=== PATIENT | male | born 1945 | race Caucasian/White ===

== ENCOUNTER 2020-09-01 11:09 | Inpatient (IN) | payer MEDICARE ==
[~2020-09-01] VITALS: Ht 162.6 cm; Wt 77.1 kg
--- NOTE | 2020-09-01 07:10 | NUR ---
SBAR REPORT GIVEN VERBALLY FROM DAYSHIFT RN, PT REMAINS ON DROPLET PRECAUTIONS, PATIENT AWAKE ALERT, ORIENTED x 2, SLIGHT CONFUSION NOTED, LETHARGY NOTED, OXYGEN IN PLACE VIA NASAL CANNULA REMAIN ON TELEMETRY WITH CONT PULSE OXIMETRY FOR SAFETY, PATIENT ORIENTED TO ONCOMING STAFF, BOARD UPDATED, PLAN OF CARE DISCUSSED, CALL LIGHT WITHIN REACH, PATIENT EDUCATED TO CALL PRIOR TO GETTING OOB FOR SAFETY
[2020-09-01] MEDS ORDERED: PIPER-TAZ 3.375 GM 50 ML IV ONE (11:45)
[2020-09-01] MEDS ORDERED: VANCOMYCIN 1GM/NS 250 ML 250 ML IV ONE (11:45)
--- NOTE | 2020-09-01 12:07 | Diagnostic Imaging Report ---
EXAMINATION: CHEST SINGLE (PORTABLE) INDICATION: COPD, shortness of breath COMPARISON: None FINDINGS: LINES/TUBES:None LUNGS:The lungs are well-inflated. Bilateral lower lung predominant interstitial opacities. PLEURA:No pleural effusion or pneumothorax. MEDIASTINUM:The cardiomediastinal silhouette appears normal in size and shape. Atherosclerotic calcifications of the thoracic aorta. BONES/SOFT TISSUES:No acute osseous injury. ABDOMEN:No free air under the diaphragm. IMPRESSION: Bilateral lower lung predominant interstitial opacities, more likely pulmonary interstitial edema than superimposed atypical infection. Signed by: Jennifer Maher MD on 09/01/2020 12:04 PM
[2020-09-01 12:15] LABS: BASOPHILS % 0.4 % (0.0-1.0); EOSINOPHILS # (AUTO) 0.2 (0.0-0.4); EOSINOPHILS % 2.9 % (0.0-6.0); HEMATOCRIT 54.1 % (38.2-49.6); HEMOGLOBIN 13.8 g/dL (14.0-18.0); LYMPHOCYTES # (AUTO) 0.9 (1.0-3.2); LYMPHOCYTES % 12.2 % (18.0-39.1); MEAN CORPUSCULAR HGB CONC 25.5 g/dL (31-35); MEAN CORPUSCULAR VOLUME 74.6 fL (81-99); MONOCYTES # (AUTO) 0.5 (0.2-0.8); MONOCYTES % 7.2 % (4.4-11.3); NEUTROPHILS # (AUTO) 5.4 (2.1-6.9); NEUTROPHILS % 76.7 % (38.7-80.0); PLATELET COUNT 198 x10e3/uL (140-360); RED CELL DISTRIBUTION WIDTH 23.2 % (11.7-14.4)
[2020-09-01 12:19] LABS: INR 0.97; PROTHROMBIN TIME 13.4 seconds (11.9-14.5); RED BLOOD COUNT 7.25 x10e6/uL (4.3-5.7)
[2020-09-01 12:20] LABS: PARTIAL THROMBOPLASTIN TIME 30.9 seconds (23.8-35.5)
[2020-09-01 12:30] LABS: ALANINE AMINOTRANSFERASE 8 IU/L (0-55); ALBUMIN/GLOBULIN RATIO 1.2 (0.8-2.0); ALKALINE PHOSPHATASE 86 IU/L (40-150); ANION GAP 14.2 mmol/L (8-16); BLOOD UREA NITROGEN 16 mg/dL (7-26); BUN/CREATININE RATIO 15 (6-25); CALCIUM 9.4 mg/dL (8.4-10.2); CARBON DIOXIDE 36 mmol/L (22-29); CHLORIDE 96 mmol/L (98-107); CREATINE KINASE 47 IU/L (30-200); CREATININE, SERUM 1.04 mg/dL (0.72-1.25); EST GLOMERULAR FILTRATION RATE > 60 ML/MIN (60-); GLUCOSE 112 mg/dL (74-118); MAGNESIUM 2.3 MG/DL (1.3-2.1); POTASSIUM 4.2 mmol/L (3.5-5.1); SODIUM 142 mmol/L (136-145)
--- NOTE | 2020-09-01 13:11 | Emergency Department Note ---
History of Present Illnes History of Present Illness Chief Complaint: General Medicine Complaints History of Present Illness This is a 74 year old male Patient in from home with complaints of bilateral lower extremity redness and swelling that started about 2 weeks ago. Patient has advanced COPD and is on oxygen at home. Oxygen saturation in triage on room air was 78%, 100% on 4L via nasal cannula. Patient is tachypneic in triage. Historian: Patient Arrival Mode: Car Screen Making Supervisor Required: No Onset (how long ago): week(s) (2) Location: BILAT LEGS Quality: SWELLING, REF, PAINFUL Radiation: Reports non-radiation Severity: moderate Onset quality: gradual Timing of current episode: constant Progression: worsening Chronicity: new Context: Denies recent illness Relieving factors: none Exacerbating factors: none Associated symptoms: Reports denies other symptoms, Reports shortness of breath Past Medical/Family History Physician Review I have reviewed the patient's past medical and family history. Any updates have been documented here. Past Medical History Recent Fever: No Clinical Suspicion of Infectio: No New/Unexplained Change in Ment: No Past Medical History: Hypertension, Diabetes, COPD, CHF, Hyperlipedemia, Osteoarthritis Past Surgical History: Hernia Repair Social History Smoking Cessation: Current every day smoker Counseling Performed: No Alcohol Use: None Any Illegal Drug Use: No TB Exposure/Symptoms: No Physically hurt or threatened: No Other Any Pre-Existing Lines (PICC,: No Review of Systems Review of Systems Constitutional: Reports no symptoms EENTM: Reports no symptoms Cardiovascular: Reports edema Respiratory: Reports as per HPI, Reports dyspnea Gastrointestinal: Reports no symptoms Genitourinary: Reports no symptoms Musculoskeletal: Reports as per HPI Integumentary: Reports no symptoms Neurological: Reports no symptoms Psychological: Reports no symptoms Endocrine: Reports no symptoms Hematological/Lymphatic: Reports no symptoms Physical Exam Related Data Allergies: Coded Allergies: No Known Allergies (Unverified , 09/01/20) Triage Vital Signs Vital Signs Date Time Temp Pulse Resp B/P (MAP) Pulse Ox O2 Delivery O2 Flow Rate FiO2 09/01/20 11:19 98.1 101 28 153/77 97 Room Air 09/01/20 11:43 4.0 Vital signs reviewed: Yes Physical Exam CONSTITUTIONAL Constitutional: Present well-developed, Present well-nourished HENT HENT: Present normocephalic, Present atraumatic, Present oropharynx clear/moist, Present nose normal HENT L/R: Present left ext ear normal, Present right ext ear normal EYES Eyes: Reports PERRL, Reports conjunctivae normal NECK Neck: Present ROM normal PULMONARY Pulmonary: Present effort normal, Present breath sounds normal CARDIOVASCULAR Cardiovascular: Present regular rhythm, Present heart sounds normal, Present capillary refill normal, Present normal rate GASTROINTESTINAL Abdominal: Present soft, Present nontender, Present bowel sounds normal GENITOURINARY Genitourinary: Present exam deferred SKIN Skin: Present warm, Present dry MUSCULOSKELETAL Musculoskeletal: Present ROM normal, Present edema (3+ BILAT LE's, ), Present tenderness, Present other (ERYTHEMA BELOW KNEES TO FEET) NEUROLOGICAL Neurological: Present alert, Present oriented x 3, Present no gross motor or sensory deficits PSYCHOLOGICAL Psychological: Present mood/affect normal, Present judgement normal Results Laboratory Result Diagram: 09/01/20 1136 09/01/20 1136 Laboratory Laboratory Tests Test 09/01/20 11:37 09/01/20 11:36 White Blood Count 6.97 x10e3/uL (4.8-10.8) Red Blood Count 7.25 x10e6/uL (4.3-5.7) Hemoglobin 13.8 g/dL (14.0-18.0) Hematocrit 54.1 % (38.2-49.6) Mean Corpuscular Volume 74.6 fL (81-99) Mean Corpuscular Hemoglobin 19.0 pg (28-32) Mean Corpuscular Hemoglobin Concent 25.5 g/dL (31-35) Red Cell Distribution Width 23.2 % (11.7-14.4) Platelet Count 198 x10e3/uL (140-360) Neutrophils (%) (Auto) 76.7 % (38.7-80.0) Lymphocytes (%) (Auto) 12.2 % (18.0-39.1) Monocytes (%) (Auto) 7.2 % (4.4-11.3) Eosinophils (%) (Auto) 2.9 % (0.0-6.0) Basophils (%) (Auto) 0.4 % (0.0-1.0) Neutrophils # (Auto) 5.4 (2.1-6.9) Lymphocytes # (Auto) 0.9 (1.0-3.2) Monocytes # (Auto) 0.5 (0.2-0.8) Eosinophils # (Auto) 0.2 (0.0-0.4) Basophils # (Auto) 0.0 (0.0-0.1) Absolute Immature Granulocyte (auto 0.04 x10e3/uL (0-0.1) Prothrombin Time 13.4 seconds (11.9-14.5) Prothromb Time International Ratio 0.97 Activated Partial Thromboplast Time 30.9 seconds (23.8-35.5) Sodium Level 142 mmol/L (136-145) Potassium Level 4.2 mmol/L (3.5-5.1) Chloride Level 96 mmol/L (98-107) Carbon Dioxide Level 36 mmol/L (22-29) Anion Gap 14.2 mmol/L (8-16) Blood Urea Nitrogen 16 mg/dL (7-26) Creatinine 1.04 mg/dL (0.72-1.25) Estimat Glomerular Filtration Rate > 60 ML/MIN (60-) BUN/Creatinine Ratio 15 (6-25) Glucose Level 112 mg/dL (74-118) Calcium Level 9.4 mg/dL (8.4-10.2) Magnesium Level 2.3 MG/DL (1.3-2.1) Total Bilirubin 0.6 mg/dL (0.2-1.2) Aspartate Amino Transf (AST/SGOT) 16 IU/L (5-34) Alanine Aminotransferase (ALT/SGPT) 8 IU/L (0-55) Alkaline Phosphatase 86 IU/L (40-150) Creatine Kinase 47 IU/L (30-200) Creatine Kinase MB 2.80 ng/mL (0-5.0) Troponin I 0.009 ng/mL (0-0.300) B-Type Natriuretic Peptide 133.4 pg/mL (0-100) Total Protein 7.3 g/dL (6.5-8.1) Albumin 4.0 g/dL (3.5-5.0) Globulin 3.3 g/dL (2.3-3.5) Albumin/Globulin Ratio 1.2 (0.8-2.0) Lab results reviewed: Yes Imaging Imaging results reviewed: Yes Procedures 12 Lead ECG Interpretation ECG Interpretation : ECG: ECG 1 Screen Making Supervisor: Interpreted by ED physician Date: Sep 01, 2020 Time: 12:02 Rhythm: sinus tachycardia Ectopy: PVC's Rate: tachycardia BPM: 104 QRS axis: left Conduction: left bundle branch block T wave inversion: I, aVL Clinical Impression: abnormal ECG Assessment & Plan Medical Decision Making MDM LE EDEMA, ERYTHEMA/TENDERNESS - CBC, CHEM, BLD CX'S, ECG, CARDIACS, BNP, CXR, DOPPLER - EVAL CELLULITIS, CHF, DVT, RENAL INSUFF, HYPOALBUMINEMIA Reassessment Reassessment ADMIT DR GUZMÁN ([facility]) Assessment & Plan Final Impression: (1) Cellulitis (2) CHF (congestive heart failure) Depart Disposition: ADMITTED Last Vital Signs Date Time Temp Pulse Resp B/P (MAP) Pulse Ox O2 Delivery O2 Flow Rate FiO2 09/01/20 12:30 109 20 115/61 99 Nasal Cannula 4.0 09/01/20 11:19 98.1 Medications in the ED Piperacillin Sod/ Tazobactam Sod 50 ml @ 50 mls/hr NOW ONCE IV Last administered on 09/01/20at 12:22; Admin Dose 50 MLS/HR; Start 09/01/20 at 11:45; Stop 09/01/20 at 12:44; Status DC Vancomycin HCl 250 ml @ 166.667 mls/hr NOW ONCE IV Last administered on 09/01/20at 12:53; Admin Dose 166.667 MLS/HR; Start 09/01/20 at 11:45; Stop 09/01/20 at 13:14 PEDRO LOZA MD Sep 01, 2020 13:10
[2020-09-01 13:34] LABS: BILIRUBIN,URINE NEGATIVE (NEGATIVE); CLARITY,URINE CLEAR (CLEAR); COLOR,URINE YELLOW (YELLOW); KETONES,URINE NEGATIVE (NEGATIVE); LEUKOCYTE ESTERASE ,URINE NEGATIVE (NEGATIVE); NITRITE,URINE NEGATIVE (NEGATIVE); PROTEIN,URINE DIPSTICK TRACE (NEGATIVE)
[2020-09-01 13:48] LABS: RBC,URINE 0-5 /HPF (0-5); WBC,URINE (MAN) 0-5 /HPF (0-5)
[2020-09-01] MEDS ORDERED: FUROSEMIDE INJ 10 MG/ML 4 ML VIAL IV ONE (17:15)
--- NOTE | 2020-09-01 17:30 | NUR ---
RECEIVED PATIENT ON UNIT BY WHEELCHAIR AT 1515. PT ACCOMPANIED BY TECH. PT IN NO DISTRESS. RESPIRATIONS EVEN AND BREATHING UNLABORED. TELE APPLIED. BELONGINGS WITH PATIENT. PATIENT HAS NO MEDICATIONS FROM HOME. CALL LIGHT WITHIN REACH.
[2020-09-01 17:51] VITALS: BP_SYST 107
[2020-09-01 18:17] VITALS: BP 107/74
--- NOTE | 2020-09-01 18:23 | NUR ---
CALLED PATIENT'S SPOUSE CANDIDO REGARDING HOME MEDS. PATIENT DOES NOT RECALL WHAT MEDICATIONS HE IS TAKING.
[2020-09-01 18:25] VITALS: BP 107/74
--- NOTE | 2020-09-01 18:35 | NUR ---
CALLED DR. CABRERA REGARDING CONSULT.
[2020-09-01] MEDS ORDERED: DOCUSATE SODIUM 100 MG CAP PO PRN (18:45)
[2020-09-01] MEDS ORDERED: ACETAMINOPHEN 325 MG TAB PO PRN (18:45)
[2020-09-01] MEDS ORDERED: ONDANSETRON HCL INJ 2MG/ML 2ML 2 MG/ML VIAL IV PRN (18:45)
--- NOTE | 2020-09-01 18:55 | NUR ---
SPOKE TO SPOUSE MILAD JOHN AND PATIENT'S MEDICATIONS REVIEWED. PATIENT IS RESTING IN BED WATCHING TV. PT IN STABLE CONDITION. RESPIRATIONS EVEN AND BREATHING UNLABORED. NO C/O PAIN VERBALIZED. TELE APPLIED. REPORT GIVEN TO ONCOMING NURSE.
[2020-09-01] MEDS ORDERED: HYDROCHLOROTHIA25 MG (19:05)
[2020-09-01] MEDS ORDERED: ALBUTEROL IH (19:05)
[2020-09-01] MEDS ORDERED: LISINOPRIL10 MG PO (19:05)
[2020-09-01] MEDS ORDERED: FLOMAX0.4 MG PO (19:05)
[2020-09-01] MEDS ORDERED: ASPIRIN81 MG PO (19:05)
[2020-09-01] MEDS ORDERED: LATANOPROST 0.7.5 ML OP (19:05)
[2020-09-01] MEDS ORDERED: CRESTOR10 MG PO (19:05)
[2020-09-01] MEDS ORDERED: METFORMIN HCL500 MG PO (19:05)
[2020-09-01 19:31] LABS: CREATINE KINASE MB 2.9 ng/mL (0-5.0)
[2020-09-01 19:46] VITALS: BP 122/75
[2020-09-01 19:49] VITALS: BP 122/75
[2020-09-01] MEDS: FUROSEMIDE INJ 10 MG/ML 4 ML VIAL IV SCH (20:34)
--- NOTE | 2020-09-01 21:30 | NUR ---
H&P cc: leg redness HPI: 74yoM, PCp , developed lower extremities redness/discomfort. Found to have cellulitis of legs. Pt also has severe COPD on Home O2, now withe mildly increased SOB. Pt continues to smoke. PMH: severe COPD on home O2, current smoker, CHF PShx; double hernia repair Allergies; see emr Fh/SH; ; 1ppd cigs meds; see MAR ROS: no f/c/s/N/V/D/OSORIO/cp/confusion/dizziness/vision changes/focal limb weakness v/s revd PE tired appearing anicteric ns1s2 REDUCED BS soft nt nd ERYTHEMA AND WARMTH OF B/L FORELEGS, WITH ASSOCIATED EDEMA 2+ skin dry flat affect a&ox3; knox labs/meds revd A/P: Cellulitis of B/L forelegs- IV vanco Severe COPD - O2 prn Nicotine dependence- use nicotine patch AECHF- check echo; use lasix IV B/L pulmonary edema- diurese Prop: lovenox Dispo: f/u COVID testing JARRED GUZMÁN MD, PHD.
--- NOTE | 2020-09-01 21:51 | NUR ---
TELEMETRY REPORTING PATIENT DESAT READING 77, PATIENT SEEN SITTING ON SIDE OF BED, WITH ONE FOOT ON FLOOR, TELEMETRY AND OXYGEN OFF, PT STATES "i HAD TO PEE" REEDUCATED PATIENT ABOUT IMPORTANCE OF TELEMETRY MONITORING AND KEEPING OXYGEN ON FOR SAFETY, STATES " I UNDERSTAND"
[2020-09-02] VITALS (9 sets, daily range): BP systolic 121–134; BP diastolic 74–81
--- NOTE | 2020-09-02 00:13 | NUR ---
rounding performed, pt seen sitting in bed, awake alert, vitals stable, afebrile, remain on oxygen 4 liters via nasal cannula, SPO2@94%, compliant with oxygen therapy at this time, call light within reach, advised to call prior to getting OOB for safety, bathroom light on, and light above door on for safety
[2020-09-02 04:34] LABS: BASOPHILS % 0.3 % (0.0-1.0); EOSINOPHILS # (AUTO) 0.2 (0.0-0.4); HEMATOCRIT 51.1 % (38.2-49.6); HEMOGLOBIN 12.8 g/dL (14.0-18.0); LYMPHOCYTES % 13.6 % (18.0-39.1); MEAN CORPUSCULAR HEMOGLOBIN 18.8 pg (28-32); MONOCYTES # (AUTO) 0.5 (0.2-0.8); NEUTROPHILS # (AUTO) 5.8 (2.1-6.9); NEUTROPHILS % 75.7 % (38.7-80.0); PLATELET COUNT 171 x10e3/uL (140-360); RED BLOOD COUNT 6.81 x10e6/uL (4.3-5.7); RED CELL DISTRIBUTION WIDTH 22.5 % (11.7-14.4)
--- NOTE | 2020-09-02 04:37 | NUR ---
telemetry report patient oxygen desaturation @ 84% on current oxygen level, RT called to assess and perform intervention, RT placed patient on venti mask 15 liters @ 50% O2, patient tolerating well, Aox3, compliant with oxygen therapy at this time, seen resting comfortably, am labs drawn and awaiting results
[2020-09-02 04:53] LABS: ALANINE AMINOTRANSFERASE 7 IU/L (0-55); ALBUMIN 3.6 g/dL (3.5-5.0); ALBUMIN/GLOBULIN RATIO 1.3 (0.8-2.0); ALKALINE PHOSPHATASE 77 IU/L (40-150); ANION GAP 14.8 mmol/L (8-16); BLOOD UREA NITROGEN 20 mg/dL (7-26); BUN/CREATININE RATIO 21 (6-25); CALCIUM 8.8 mg/dL (8.4-10.2); CARBON DIOXIDE 35 mmol/L (22-29); CHLORIDE 97 mmol/L (98-107); CHOLESTEROL 83 MD/DL (0-199); CREATININE, SERUM 0.95 mg/dL (0.72-1.25); EST GLOMERULAR FILTRATION RATE > 60 ML/MIN (60-); GLUCOSE 84 mg/dL (74-118); HDL CHOLESTEROL 21 MG/DL (40-60); LDL CHOLESTEROL 47 MG/DL (60-130); POTASSIUM 3.8 mmol/L (3.5-5.1); SODIUM 143 mmol/L (136-145); TRIGLYCERIDES 74 MG/DL (0-149)
[2020-09-02 05:10] LABS: CREATINE KINASE MB 2.7 ng/mL (0-5.0)
--- NOTE | 2020-09-02 06:28 | NUR ---
IM- progress note O/N see below ROS: no f/c/s/N/V/D/OSORIO/cp/confusion/dizziness/vision changes/focal limb weakness v/s revd PE tired appearing anicteric ns1s2 REDUCED BS soft nt nd ERYTHEMA AND WARMTH OF B/L FORELEGS, WITH ASSOCIATED EDEMA 2+ skin dry flat affect a&ox3; knox labs/meds revd A/P: Cellulitis of B/L forelegs- IV vanco Severe COPD - O2 prn Nicotine dependence- use nicotine patch AECHF- check echo; use lasix IV B/L pulmonary edema- diurese Prop: lovenox Dispo: f/u COVID testing 11-5 cont care; improving; JARRED GUZMÁN MD, PHD.
--- NOTE | 2020-09-02 06:57 | NUR ---
SBAR REPORT GIVEN TO ALFONSO RN, PATIENT SEEN AWAKE AND LETHARGIC THIS AM, OXYGEN MASK IN PLACE, OXYGEN SAT WNR, PATIENT REEDUCATED ABOUT IMPORTANCE TO KEEP OXYGEN MASK ON FOR MAXIMAL BENEFIT, MD GUZMÁN ROUNDING DURING SHIFT CHANGE INFORMED THAT PATIENT DESAT TO 70% WHEN HE TAKES OXYGEN MASK OFF, NO NEW ORDER PER MD GUZMÁN, CONTINUE PLAN OF CARE, OXYGEN SUPPORT, IV ABT [id number], VANCO TROUGH PRIOR TO THIRD DOSE 09/03/20, CALL LIGHT WITHIN PATIENT REACH, REMAIN ON DROPLET PRECAUTION
--- NOTE | 2020-09-02 07:26 | Consultation ---
DATE OF CONSULTATION: Pulmonary Critical Care Consultation CHIEF COMPLAINT: Leg swelling and erythema of the lower extremities and difficulty breathing. HISTORY OF PRESENT ILLNESS: The patient is a 74-year-old man. He has a history of COPD and uses oxygen at home. He also has a history of leg swelling and possibly some cardiac disease. He came to the ER complaining of worsening edema in his lower extremities as well as erythema bilaterally. He was found to have low oxygen saturations and required additional oxygen. PAST MEDICAL HISTORY: 1. COPD. 2. Hypertension. 3. Diabetes. 4. Possible CHF. PAST SURGICAL HISTORY: Status post hernia repair. SOCIAL HISTORY: The patient is a smoker. He is not a drinker. ALLERGIES: NO KNOWN DRUG ALLERGIES. FAMILY HISTORY: Noncontributory. REVIEW OF SYSTEMS: The patient is afebrile. There is no complaint of headache. He has no neck pain. He is not having any chest pain. He denies any nausea or vomiting. He does have bilateral leg edema with erythema. PHYSICAL EXAMINATION: VITAL SIGNS: Blood pressure is 122/74 and saturation is 94%. His pulse is 108. He is currently on 15 L nasal cannula with a saturation of 94%. HEENT: Shows no facial swelling or erythema. LYMPHATIC: Shows no submandibular, cervical, or supraclavicular adenopathy. CARDIAC: Reveals regular rate and rhythm. Normal S1, S2. LUNGS: Auscultation of lungs reveals rhonchorous breath sounds bilaterally. There is no wheezing. ABDOMEN: Soft, nontender. EXTREMITIES: Shows 2 to 3+ lower extremity edema. There is cellulitis. LABORATORY DATA: White blood cell count 7.6, hemoglobin is 12.8, platelet count is 171. The BUN to creatinine ratio is 20 to 0.95. The other electrolytes are within normal limits. RADIOGRAPHIC DATA: Chest x-ray shows bilateral interstitial opacities suggestive of interstitial edema. IMPRESSION: 1. Cellulitis of the lower extremities with this sepsis present on admission. 2. Congestive heart failure, unspecified. 3. Chronic obstructive pulmonary disease. 4. Hypertension. 5. Anemia secondary to chronic blood loss. PLAN: 1. Continue current antibiotics. 2. Judicious use of Lasix. 3. Await echocardiogram. 4. Continue oxygen. 5. Physical therapy. MD FLAVIO Pratt/IGORL /[id number]
[2020-09-02] MEDS: FUROSEMIDE INJ 10 MG/ML 4 ML VIAL IV SCH ×2 (08:34→20:21)
[2020-09-02] MEDS: NICOTINE 21 MG/EA PATCH TOP SCH (08:34)
--- NOTE | 2020-09-02 08:38 | NUR ---
patient keeps removing face mask and will move about room with no oxygen on. saturation in low 80's. placed patient on nasal cannula at 5L. o2 sat at 95% extension tubing in place so it can reach the bathroom. patient reminded to keep oxygen on and to call nurse for assistance.
[2020-09-02] MEDS ORDERED: SODIUM CHLORIDE 0.9% 250ML 250 ML ONE (12:37)
[2020-09-02] MEDS: VANCOMYCIN 1GM/NS 250 ML 250 ML IV SCH (13:02)
--- NOTE | 2020-09-02 14:46 | NUR ---
Nutrition Screen Note RD Recommendation for Physician: -Continue cardiac diet Plan of Care: RD following, monitoring for tolerance and adequacy Nutrition reason for involvement: Nutrition Risk Trigger Primary Diagnose(s): cellulitis, CHF PMH: COPD, Hypertension, Diabetes, Possible CHF Ht: 64 in Wt: 170 lb BMI: 29.2 kg/m2 IBW:[address] Assessment: (09/02/20) Chart reviewed. Labs and meds reviewed. Pt is a 74 year old male admitted with cellulitis and CHF. COVID-19 results are pending and pt is on droplet isolation. Therefore, RD called pt over the phone. Pt reports eating all of his meals. Pt was unsure of any weight changes and stated he usually weighs 170 lbs. No N/V/D/C or chewing/swallowing issues. Pt declined the need for diet education. Will continue to monitor. Current Diet: cardiac Malnutrition Evaluation (09/02/20) The patient does not meet criteria for a specified degree of malnutrition at this time. Will re-evaluate at follow-up as appropriate. Diet Education Needs Assessment: Pt declined the need for diet education Nutrition Care Level: low Signed: Regina Hess, RD, LD
--- NOTE | 2020-09-02 18:14 | NUR ---
RCD PT FROM OBSERVATION BY BED PT IS ALERT AND ORIENTED VITALS CHECKED PT RESTING ON BED FAMILY AT BED SIDE BED LOW AND LOCKED CALL LIGHT IN REACH
--- NOTE | 2020-09-02 18:42 | NUR ---
PT RESTING ON BED BED SIDE REPORT GIVEN TO ONCOMING NURSE
--- NOTE | 2020-09-02 19:05 | NUR ---
Patient visited in room during nursing rounds. Patient alert and oriented x3. Ambulatory in room prn. On 5L NC with O2 sat about 91% to 95%. Pt on tele monitor and continuous pulse oximeter. at bedside visiting. BLE erythematous and swollen (+2 pitting edema). Pt on scheduled neb treatment. Call thorne within reach. Will monitor pt closely.
--- OUTSIDE RECORDS SUMMARY | 2020-09-02 19:42 | XMS REPORT | Continuity of Care Document ---
Author Author [facility] t Organization [facility] Address [address] [place] [address] Phone Unavailable Care Team Providers Care Taxation Consultant Name Role Phone Eb LOZA Attphys Unavailable Chaparro Neville Attphys Payers Payer Name Policy Type Policy Number Effective Date Expiration Date S ource Problems Condition Name Condition Details Condition Category Status Onset Date Resolution Date Last Treatment Date Treating Clinician Comments Source M25.551 - PAIN IN RIGHT HIP M2 5.551 - PAIN IN RIGHT HIP Active 06/02/2019 ADELINE Johnston Diagnosis Active 2019-06-02 00:01:00 2019-06-02 11:54:00 [facility] Allergies, Adverse Reactions, Alerts Allergy Name Allergy Type Status Severity Reaction(s) Onset Date Inacti ve Date Treating Clinician Comments Source No Known Allergies DA Active U 2020-08-12 00:00:00 [facility] No Known Contrast Allergies DA Active U 2008-06-19 00:00: 00 [facility] No Known Drug Allergies DA Active U 2008-06-19 00:00:00 [facility] No Known Food Allergies DA Active U 2008-06-19 00:00:00 [facility] No Known Other Allergies DA Active U 2008-06-19 00:00:00 [facility] Social History Social Habit Start Date Stop Date Quantity Comments Source Social History 2019-06-03 04:59:00 2019-06-03 04:59:00 [facility] Medic[facility] This patient has no known medications. Procedures This patient has no known procedures. Encounters Start Date/Time End Date/Time Encounter Type Admission Type [facility] Care Department Encounter ID Source 2019-06-02 11:45:00 2019-06-02 23:59:00 Outpatient Junaid haleyPino [facility] [id number] Results Test Description Test Time Test Comments Results Result Comments Source CHEST SINGLE (PORTABLE) 2020-09-01 12:03:00 [facility] 1945 Sex: M [facility] [address] [place] [address] Patient Name: RADHA JOHN JR MR #: [id number] : 1945 Age/Sex: 74/M Req #: [id number] Adm Physician: Ordered by: PEDRO LOZA MD Report #: [id number] Location: ER Room/Bed: Procedure: [id number] DX/CHEST SINGLE (PORTABLE) Exam Date: 09/01/20 Exam Time: 1150 REPORT STATUS: Signed EXAMINATION: CHEST SINGLE (P ORTABLE) INDICATION: COPD, shortness of breath COMPARISON: None FINDINGS: LINES/TUBES:None LUNGS:The lungs are well-inflated. Bilateral lower lung predominant interstitial opacities. PLEURA:No pleural effusion or pneumothorax. MEDIASTINUM:The cardiomediastinal silhouette appears normal in size and shape. Atherosclerotic calcifications of the thoracic aorta. BONES/SOFT TISSUES:No acute osseous injury. ABDOMEN:No free air under the diaphragm. IMPRESSION: Bilateral lower lung predominant interstitial opacities, more likely pulmonary interstitial edema than superimposed atypical infection. Signed by: Steff Gee MD on 09/01/2020 12:04 PM Dictated By: STEFF GEE MD 03 Transcribed By: SRAVAN on 09/01/201203 COPY TO: PEDRO LOZA MD MAGNESIUM 2020-08-12 21:05:00 Test Item MAGNESIUM (test code = MAG) 2.7 mg/dL 1.8-2.4 H PROTHROMBIN [id number] 19:44:00* Test Item Value Reference Range Interpretation Comments PROTHROMBIN TIME PATIENT (test code = PTP) 12.2 seconds 9.0-14.0 N INTERNATIONAL NORMAL RATIO (test code = INR) 1.1 0.8-1.2 N The therapeutic range for oral anticoagulant therapy formost indications is an international normalized ratio (INR)of between 2.0 and 3.0. The recommended therapeutic INRrange for various clinical situations is listed below: Clinical Situation INR range Pulmonary e mbolism treatment (2.0-3.0)Venous thrombosis treatmentVenous thrombosis prophylaxis (high risk surgery)Prevention of systemic embolism from: Acute myocardial infarction Valvular heart disease Atrial fibrillation Mechanical prosthetic heart valves (2.5-3.5) THROMBOPLASTIN TIME [id number] 19:44:00* Test Item Value Reference Range Interpretation Comments THROMBOPLASTIN TIME PARTIAL (test code = PTT) 29.8 seconds 23.0-37. 0 N CBC W/AUTO [id number] 18:56:00* Test Item Value Reference Range Interpretation Comments WHITE BLOOD CELL (test code = WBC) 7.3 K/mm3 4.5-12.5 N RED BLOOD CELL (test code = RBC) 7.47 mill/mm3 4.0-5.8 H HEMOGLOBIN (test code = HGB) 14.2 gram/dL 13.0-17.5 N HEMATOCRIT (test code = HCT) 56.9 % 42.0-52.0 H MEAN CELL VOLUME (test code = MCV) 76.2 fL 80-98 L MEAN CELL HGB (test code = MCH) 19.0 picogram 27.0-33.0 L MEAN CELL HGB CONCETRATION (test code = MCHC) 25.0 gram/dL 33.0-36. 0 L RED CELL DISTRIBUTION WIDTH (test code = RDW) 23.9 % 11.6-16. 2 H RED CELL DISTRIBUTION WIDTH SD (test code = RDW-SD) 59.9 fL 37 .0-51.0 H PLATELET COUNT (test code = PLT) 271 K/mm3 150-450 N MEAN PLATELET VOLUME (test code = MPV) TEST NOT PERFORMED fL 6.7-11 .0 UNABLE TO CALCULATE NEUTROPHIL % (test code = NT%) 69.8 % 39.0-69.0 H IMMATURE GRANULOCYTE % (test code = IG%) 0.3 % 0.0-5.0 N LYMPHOCYTE % (test code = LY%) 17.1 % 25.0-55.0 L MONOCYTE % (test code = MO%) 9.1 % 0.0-10.0 N EOSINOPHIL % (test code = EO%) 3.3 % 0.0-5.0 N BASOPHIL % (test code = BA%) 0.4 % 0.0-1.0 N NUCLEATED RBC % (test code = NRBC%) 0.0 % 0-0 N NEUTROPHIL # (test code = NT#) 5.09 K/mm3 1.8-7.7 N IMMATURE GRANULOCYTE # (test code = IG#) 0.02 x10 3/uL 0-0.03 N LYMPHOCYTE # (test code = LY#) 1.25 K/mm3 1.0-5.0 N MONOCYTE # (test code = MO#) 0.66 K/mm3 0-0.8 N EOSINOPHIL # (test code = EO#) 0.24 K/mm3 0.0-0.5 N BASOPHIL # (test code = BA#) 0.03 K/mm3 0.0-0.2 N NUCLEATED RBC # (test code = NRBC#) 0.00 K/mm3 0.0-0.1 N MANUAL DIFF REQUIRED (test code = MDIFF) NO, ONLY SCAN NEEDED DIFFERENTIAL [id number] 18:56:00* Test Item Value Reference Range Interpretation Comments STAIN ACCEPTABILITY (test code = STN ACCEPTABLE) STAIN ACCEPTABLE POLYCHROMASIA (test code = POLC) 1+ POIKILOCYTOSIS (test code = POIK) 1+ ANISOCYTOSIS (test code = ANISO) 1+ MICROCYTOSIS (test code = MICR) 1+ PLATELET ESTIMATE (test code = PLTEST) ADEQUATE PLATELET MORPHOLOGY (test code = PLTMORPH) NORMAL B-TYPE NATRIURETIC [id number] 18:22:00* Test Item Value Reference Range Interpretation Comments B-TYPE NATRIURETIC PEPTIDE (test code = BNP) 104.84 pgram/mL 0-100 H [id number] 18:07:00* Test Item Value Reference Range Interpretation Comments TROPONIN-I (test code = TROPI) 0.016 ng/mL 0-0.045 N BASIC METABOLIC [id number] 18:04:00* Test Item Value Reference Range Interpretation Comments SODIUM (test code = NA) 140 mmol/L 136-145 N POTASSIUM (test code = K) 3.5 mmol/L 3.5-5.1 N CHLORIDE (test code = CL) 99.0 mmol/L 98-107 N CARBON DIOXIDE (test code = CO2) 39.0 mmol/L 21-32 H ANION GAP (test code = GAP) 5.5 10-20 L GLUCOSE (test code = GLU) 102 mg/dL 74-106 N BLOOD UREA NITROGEN (test code = BUN) 20 mg/dL 7-18 H GLOMERULAR FILTRATION RATE (test code = GFR) > 60 mL/min >=60 Estimated GFR by using Modified MDRD formula.Chronic kidney disease is defined as either kidney damageor GFR <60 mL/min/1.73 m2 for >3 months. CREATININE (test code = CREAT) 0.80 mg/dL 0.7-1.3 N BUN/CREATININE RATIO (test code = BUN/CREA) 25.0 10-20 H CALCIUM (test code = CA) 8.8 mg/dL 8.5-10.1 N BASIC METABOLIC [id number] 17:58:00* Test Item Value Reference Range Interpretation Comments SODIUM (test code = NA) 140 mmol/L 136-145 N POTASSIUM (test code = K) 3.5 mmol/L 3.5-5.1 N CHLORIDE (test code = CL) 99.0 mmol/L 98-107 N CARBON DIOXIDE (test code = CO2) mmol/L 21-32 ANION GAP (test code = GAP) 10-20 GLUCOSE (test code = GLU) mg/dL 74-106 BLOOD UREA NITROGEN (test code = BUN) mg/dL 7-18 GLOMERULAR FILTRATION RATE (test code = GFR) mL/min >=60 CREATININE (test code = CREAT) mg/dL 0.7-1.3 BUN/CREATININE RATIO (test code = BUN/CREA) 10-20 CALCIUM (test code = CA) mg/dL 8.5-10.1 CBC W/AUTO [id number] 17:55:00* Test Item Value Reference Range Interpretation Comments WHITE BLOOD CELL (test code = WBC) 7.3 K/mm3 4.5-12.5 N RED BLOOD CELL (test code = RBC) 7.47 mill/mm3 4.0-5.8 H HEMOGLOBIN (test code = HGB) 14.2 gram/dL 13.0-17.5 N HEMATOCRIT (test code = HCT) 56.9 % 42.0-52.0 H MEAN CELL VOLUME (test code = MCV) 76.2 fL 80-98 L MEAN CELL HGB (test code = MCH) 19.0 picogram 27.0-33.0 L MEAN CELL HGB CONCETRATION (test code = MCHC) 25.0 gram/dL 33.0-36. 0 L RED CELL DISTRIBUTION WIDTH (test code = RDW) 23.9 % 11.6-16. 2 H RED CELL DISTRIBUTION WIDTH SD (test code = RDW-SD) 59.9 fL 37 .0-51.0 H PLATELET COUNT (test code = PLT) 271 K/mm3 150-450 N MEAN PLATELET VOLUME (test code = MPV) TEST NOT PERFORMED fL 6.7-11 .0 UNABLE TO CALCULATE NEUTROPHIL % (test code = NT%) 69.8 % 39.0-69.0 H IMMATURE GRANULOCYTE % (test code = IG%) 0.3 % 0.0-5.0 N LYMPHOCYTE % (test code = LY%) 17.1 % 25.0-55.0 L MONOCYTE % (test code = MO%) 9.1 % 0.0-10.0 N EOSINOPHIL % (test code = EO%) 3.3 % 0.0-5.0 N BASOPHIL % (test code = BA%) 0.4 % 0.0-1.0 N NUCLEATED RBC % (test code = NRBC%) 0.0 % 0-0 N NEUTROPHIL # (test code = NT#) 5.09 K/mm3 1.8-7.7 N IMMATURE GRANULOCYTE # (test code = IG#) 0.02 x10 3/uL 0-0.03 N LYMPHOCYTE # (test code = LY#) 1.25 K/mm3 1.0-5.0 N MONOCYTE # (test code = MO#) 0.66 K/mm3 0-0.8 N EOSINOPHIL # (test code = EO#) 0.24 K/mm3 0.0-0.5 N BASOPHIL # (test code = BA#) 0.03 K/mm3 0.0-0.2 N NUCLEATED RBC # (test code = NRBC#) 0.00 K/mm3 0.0-0.1 N MANUAL DIFF REQUIRED (test code = MDIFF) NO, ONLY SCAN NEEDED DIFFERENTIAL [id number] 17:55:00* Test Item Value Reference Range Interpretation Comments STAIN ACCEPTABILITY (test code = STN ACCEPTABLE) CABOT RINGS (test code = CAB) MORPHOLOGY COMMENT (test code = MOC) PLATELET ESTIMATE (test code = PLTEST) PLATELET MORPHOLOGY (test code = PLTMORPH) CBC W/AUTO [id number] 17:55:00* Test Item Value Reference Range Interpretation Comments WHITE BLOOD CELL (test code = WBC) 7.3 K/mm3 4.5-12.5 N RED BLOOD CELL (test code = RBC) 7.47 mill/mm3 4.0-5.8 H HEMOGLOBIN (test code = HGB) 14.2 gram/dL 13.0-17.5 N HEMATOCRIT (test code = HCT) 56.9 % 42.0-52.0 H MEAN CELL VOLUME (test code = MCV) 76.2 fL 80-98 L MEAN CELL HGB (test code = MCH) 19.0 picogram 27.0-33.0 L MEAN CELL HGB CONCETRATION (test code = MCHC) 25.0 gram/dL 33.0-36. 0 L RED CELL DISTRIBUTION WIDTH (test code = RDW) 23.9 % 11.6-16. 2 H RED CELL DISTRIBUTION WIDTH SD (test code = RDW-SD) 59.9 fL 37 .0-51.0 H PLATELET COUNT (test code = PLT) 271 K/mm3 150-450 N MEAN PLATELET VOLUME (test code = MPV) TEST NOT PERFORMED fL 6.7-11 .0 UNABLE TO CALCULATE NEUTROPHIL % (test code = NT%) 69.8 % 39.0-69.0 H IMMATURE GRANULOCYTE % (test code = IG%) 0.3 % 0.0-5.0 N LYMPHOCYTE % (test code = LY%) 17.1 % 25.0-55.0 L MONOCYTE % (test code = MO%) 9.1 % 0.0-10.0 N EOSINOPHIL % (test code = EO%) 3.3 % 0.0-5.0 N BASOPHIL % (test code = BA%) 0.4 % 0.0-1.0 N NUCLEATED RBC % (test code = NRBC%) 0.0 % 0-0 N NEUTROPHIL # (test code = NT#) 5.09 K/mm3 1.8-7.7 N IMMATURE GRANULOCYTE # (test code = IG#) 0.02 x10 3/uL 0-0.03 N LYMPHOCYTE # (test code = LY#) 1.25 K/mm3 1.0-5.0 N MONOCYTE # (test code = MO#) 0.66 K/mm3 0-0.8 N EOSINOPHIL # (test code = EO#) 0.24 K/mm3 0.0-0.5 N BASOPHIL # (test code = BA#) 0.03 K/mm3 0.0-0.2 N NUCLEATED RBC # (test code = NRBC#) 0.00 K/mm3 0.0-0.1 N MANUAL DIFF REQUIRED (test code = MDIFF) NO, ONLY SCAN NEEDED DIFFERENTIAL [id number] 17:55:00* Test Item Value Reference Range Interpretation Comments STAIN ACCEPTABILITY (test code = STN ACCEPTABLE) MORPHOLOGY COMMENT (test code = MOC) PLATELET ESTIMATE (test code = PLTEST) PLATELET MORPHOLOGY (test code = PLTMORPH) CBC W/AUTO [id number] 17:54:00* Test Item Value Reference Range Interpretation Comments WHITE BLOOD CELL (test code = WBC) 7.3 K/mm3 4.5-12.5 N RED BLOOD CELL (test code = RBC) 7.47 mill/mm3 4.0-5.8 H HEMOGLOBIN (test code = HGB) 14.2 gram/dL 13.0-17.5 N HEMATOCRIT (test code = HCT) 56.9 % 42.0-52.0 H MEAN CELL VOLUME (test code = MCV) 76.2 fL 80-98 L MEAN CELL HGB (test code = MCH) 19.0 picogram 27.0-33.0 L MEAN CELL HGB CONCETRATION (test code = MCHC) 25.0 gram/dL 33.0-36. 0 L RED CELL DISTRIBUTION WIDTH (test code = RDW) 23.9 % 11.6-16. 2 H RED CELL DISTRIBUTION WIDTH SD (test code = RDW-SD) 59.9 fL 37 .0-51.0 H PLATELET COUNT (test code = PLT) 271 K/mm3 150-450 N MEAN PLATELET VOLUME (test code = MPV) TEST NOT PERFORMED fL 6.7-11 .0 UNABLE TO CALCULATE NEUTROPHIL % (test code = NT%) 69.8 % 39.0-69.0 H IMMATURE GRANULOCYTE % (test code = IG%) 0.3 % 0.0-5.0 N LYMPHOCYTE % (test code = LY%) 17.1 % 25.0-55.0 L MONOCYTE % (test code = MO%) 9.1 % 0.0-10.0 N EOSINOPHIL % (test code = EO%) 3.3 % 0.0-5.0 N BASOPHIL % (test code = BA%) 0.4 % 0.0-1.0 N NUCLEATED RBC % (test code = NRBC%) 0.0 % 0-0 N NEUTROPHIL # (test code = NT#) 5.09 K/mm3 1.8-7.7 N IMMATURE GRANULOCYTE # (test code = IG#) 0.02 x10 3/uL 0-0.03 N LYMPHOCYTE # (test code = LY#) 1.25 K/mm3 1.0-5.0 N MONOCYTE # (test code = MO#) 0.66 K/mm3 0-0.8 N EOSINOPHIL # (test code = EO#) 0.24 K/mm3 0.0-0.5 N BASOPHIL # (test code = BA#) 0.03 K/mm3 0.0-0.2 N NUCLEATED RBC # (test code = NRBC#) 0.00 K/mm3 0.0-0.1 N MANUAL DIFF REQUIRED (test code = MDIFF) NO, ONLY SCAN NEEDED DIFFERENTIAL [id number] 17:54:00* Test Item Value Reference Range Interpretation Comments STAIN ACCEPTABILITY (test code = STN ACCEPTABLE) CABOT RINGS (test code = CAB) MORPHOLOGY COMMENT (test code = MOC) PLATELET ESTIMATE (test code = PLTEST) PLATELET MORPHOLOGY (test code = PLTMORPH) CBC W/AUTO [id number] 17:54:00* Test Item Value Reference Range Interpretation Comments WHITE BLOOD CELL (test code = WBC) 7.3 K/mm3 4.5-12.5 N RED BLOOD CELL (test code = RBC) 7.47 mill/mm3 4.0-5.8 H HEMOGLOBIN (test code = HGB) 14.2 gram/dL 13.0-17.5 N HEMATOCRIT (test code = HCT) 56.9 % 42.0-52.0 H MEAN CELL VOLUME (test code = MCV) 76.2 fL 80-98 L MEAN CELL HGB (test code = MCH) 19.0 picogram 27.0-33.0 L MEAN CELL HGB CONCETRATION (test code = MCHC) 25.0 gram/dL 33.0-36. 0 L RED CELL DISTRIBUTION WIDTH (test code = RDW) 23.9 % 11.6-16. 2 H RED CELL DISTRIBUTION WIDTH SD (test code = RDW-SD) 59.9 fL 37 .0-51.0 H PLATELET COUNT (test code = PLT) 271 K/mm3 150-450 N MEAN PLATELET VOLUME (test code = MPV) TEST NOT PERFORMED fL 6.7-11 .0 UNABLE TO CALCULATE NEUTROPHIL % (test code = NT%) 69.8 % 39.0-69.0 H IMMATURE GRANULOCYTE % (test code = IG%) 0.3 % 0.0-5.0 N LYMPHOCYTE % (test code = LY%) 17.1 % 25.0-55.0 L MONOCYTE % (test code = MO%) 9.1 % 0.0-10.0 N EOSINOPHIL % (test code = EO%) 3.3 % 0.0-5.0 N BASOPHIL % (test code = BA%) 0.4 % 0.0-1.0 N NUCLEATED RBC % (test code = NRBC%) 0.0 % 0-0 N NEUTROPHIL # (test code = NT#) 5.09 K/mm3 1.8-7.7 N IMMATURE GRANULOCYTE # (test code = IG#) 0.02 x10 3/uL 0-0.03 N LYMPHOCYTE # (test code = LY#) 1.25 K/mm3 1.0-5.0 N MONOCYTE # (test code = MO#) 0.66 K/mm3 0-0.8 N EOSINOPHIL # (test code = EO#) 0.24 K/mm3 0.0-0.5 N BASOPHIL # (test code = BA#) 0.03 K/mm3 0.0-0.2 N NUCLEATED RBC # (test code = NRBC#) 0.00 K/mm3 0.0-0.1 N MANUAL DIFF REQUIRED (test code = MDIFF) NO, ONLY SCAN NEEDED DIFFERENTIAL [id number] 17:54:00* Test Item Value Reference Range Interpretation Comments STAIN ACCEPTABILITY (test code = STN ACCEPTABLE) CABOT RINGS (test code = CAB) MORPHOLOGY COMMENT (test code = MOC) PLATELET ESTIMATE (test code = PLTEST) PLATELET MORPHOLOGY (test code = PLTMORPH) - XR CHEST 1 [id number] 17:51:00 [facility])Name: RADHA JOHN : 1945 Sex: M FAX: Pino Sands MD [phone] [place]: St: [facility] FAX: Vaughn Fu MD Name: ALVARORADHA AVINASH [facility] Mario hodges : 1945 Age/S: 74/M [address] Unit #: [id number] Loc: [place] [address] Phys: Vaughn Fu MD Acct: [id number] Dis Date: Status: REG ER PHONE #: [phone] Exam Date: 08/12/2020 1735 FAX #: [phone] Reason: SOB EXAMS: CPT CODE: [id number] XR CHEST 1 V 98070 EXAM: Chest x-ray, one view; INFORMATION: Shortness of breath; FINDINGS: Compared with a study from April 07, 2019, the heart is slightly enlarged. There are increased vascular markings bilaterally and increased interstitial markings in the lower portions of both lungs. No obvious effusions. IMPRESSION: Mild left heart failure, characterized by mild cardiomegaly and mild basilar interstiti al edema. Location code: [facility] Electronical ly Signed by Linda Malone on 08/12/2020 at 1 751 Reported and signed by: Dallin Malone M.D. CC: Pino Neville MD; Vaughn Fu MD Technologist: JOSÉ Broussard Trn franckd Date/Time/By: 08/12/2020 (1750) : By: Nanci Orig Print D/T: S : 08/12/2020 (2560) PAGE 1 Signed Report - XR CHEST 2 [id number] 10:15:00 FAX: Pino Sands MD [phone] [place]: O St: REG FAX: Ruben Mackay [phone] Name: RADHA JOHN [facility] : 1945 Age/S: 73/M [address] [facility] Unit #: [id number] Loc: [place] [address] Phys: Ruben De La Torre MD Acct: [id number] Dis Date: Status: REG CLI PHONE #: [phone] Exam Date: 04/07/2019 1006 FAX #: [phone] Reason: COUGH EXAMS: CPT CODE: [id number] XR CHEST 2 V 86918 HISTORY: Cough. COMPARISON: June 19, 2008. AP and lateral view of the chest: No acute infiltrates, e ffusion or congestion. Cardiac and the mediastinal silhouette are normal. DJD of the dorsal spine. IMPRESSION: No acute infiltrates, effusion or congestion. Electronically Si gned by Linda Ritchie on 04/07/2019 at 1015 Reported and signed by: Mg Ritchie M.D. CC: Pino Neville MD; Ruben De La Torre MD Technologist: RT Bernard(Ada) Trnscrd Date/Time/By: 04/07/2019 (1015) : By: [email or web address] Orig Print D/T: S: 04/07/2019 (1012) PAGE 1 Signed Report
--- OUTSIDE RECORDS SUMMARY | 2020-09-02 19:42 | XMS REPORT | Continuity of Care Document ---
Author Author Esequiel Tekonsha RADHA Oconnor Organization [facility] Address Unknown Phone Unavailable Care Team Providers Care Physical Therapy Aides Teacher Name Role Phone Encover Information Exchange Unavailable Un available Problems Problem Status Onset Date Classification Date Reported Comments Source M25.551 - PAIN IN RIGHT HIP Ac tive 06/02/2019 [facility] [place] Medications No Data Provided for This Section Allergies, Adverse Reactions, Alerts No Known Medication Allergies Immunizations No Data Provided for This Section Results No Data Provided for This Section Pathology Reports No Data Provided for This Section Diagnostic Reports Report Value Date Source Hip 2/3 views uni w pelvis DX Exam: Hip 2/3 views right w pelvis DX Reason for Exam: - M25.551 Pain in right hip Comparison Exam: None Discussion: No acute bony abnormalities identified. SI joints and pubic symphysis are unremarkable. 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 No evidence seen for avascular necrosis involving the femoral heads. No suspicious osteoblastic or osteolytic lesions seen to suggest pathologic involvement. Impression: 1. No acute bony abnormalities identifi ed. 06/02/2019 [facility] [place] Consultation Notes No Data Provided for This Section Discharge Summaries No Data Provided for This Section History and Physicals No Data Provided for This Section Vital Signs No Data Provided for This Section Encounters Location Location Details Encounter Type Encounter Number Reason For Visit Attending Provider ADM Date DC Date Status Source [facility] [place] [facility] [id number] Pino Neville 06/02/2019 06/03/2019 [facility] [place] Procedures No Data Provided for This Section Assessment and Plan No Data Provided for This Section Plan of Care No Data Provided for This Section Social History Social History Date Source No data available for this section 06/03/2019 [facility] [place] Family History No Data Provided for This Section Advance Directives No Data Provided for This Section Functional Status No Data Provided for This Section
--- NOTE | 2020-09-02 23:00 | NUR ---
Pt awake and sitting on side of bed. Pt states he does not feel too good but refuses any assistance at this time. Pt reminded to keep O2 (NC) on at all times.
--- NOTE | 2020-09-02 23:20 | NUR ---
Patient O2 sat dropped to 68% as called in by Telemetry office. Pt seen by nurse and discovered that patient has taken out his nasal cannula. Nurse (Lionel) placed the venti mask on the patient at 10L and O2 sat went up to 95%. Will keep venti mask on patient for now and monitor pt.
[2020-09-03] VITALS (8 sets, daily range): BP systolic 112–141; BP diastolic 68–76
--- NOTE | 2020-09-03 06:34 | NUR ---
IM- progress note O/N see below ROS: no f/c/s/N/V/D/OSORIO/cp/confusion/dizziness/vision changes/focal limb weakness v/s revd PE tired appearing anicteric ns1s2 REDUCED BS soft nt nd ERYTHEMA AND WARMTH OF B/L FORELEGS, WITH ASSOCIATED EDEMA 2+ skin dry flat affect a&ox3; knox labs/meds revd A/P: Cellulitis of B/L forelegs- IV vanco Severe COPD - O2 prn Nicotine dependence- use nicotine patch AECHF- check echo; use lasix IV B/L pulmonary edema- diurese Prop: lovenox Dispo: f/u COVID testing 11-5 cont care; improving; 11-6 cont abx; COVID negative; cont care; JARRED GUZMÁN MD, PHD.
--- NOTE | 2020-09-03 07:00 | NUR ---
RECEIVED BEDSIDE SHIFT REPORT FROM OFF GOING NIGHT NURSE. PATIENT IN STABLE CONDITION, NO S/S OF DISTRESS NOTED. RESPIRATIONS EVEN AND NONLABORED, ON VENTI MASK @ 15LPM. PATENT ABLE TO VOICE NEEDS. TELEMETRY APPLIED. IV SITE ASYMPTOMATIC AND PATENT, TRANSPARENT DRESSING C/D/I. BED IN LOWEST POSITION AND LOCKED, SIDE RAILS X 2, NONSKID SOCKS APPLIED. CALL LIGHT WITHIN REACH.
[2020-09-03 07:04] LABS: BASOPHILS % 0.2 % (0.0-1.0); EOSINOPHILS # (AUTO) 0.2 (0.0-0.4); EOSINOPHILS % 2.7 % (0.0-6.0); HEMATOCRIT 52.8 % (38.2-49.6); HEMOGLOBIN 13.2 g/dL (14.0-18.0); LYMPHOCYTES % 12.1 % (18.0-39.1); MEAN CORPUSCULAR HEMOGLOBIN 18.9 pg (28-32); MEAN CORPUSCULAR VOLUME 75.6 fL (81-99); MONOCYTES # (AUTO) 0.7 (0.2-0.8); MONOCYTES % 7.7 % (4.4-11.3); NEUTROPHILS # (AUTO) 6.6 (2.1-6.9); NEUTROPHILS % 76.8 % (38.7-80.0); PLATELET COUNT 172 x10e3/uL (140-360); RED BLOOD COUNT 6.98 x10e6/uL (4.3-5.7); RED CELL DISTRIBUTION WIDTH 22.6 % (11.7-14.4)
[2020-09-03 07:25] LABS: ANION GAP 13.4 mmol/L (8-16); BLOOD UREA NITROGEN 22 mg/dL (7-26); BUN/CREATININE RATIO 23 (6-25); CALCIUM 8.9 mg/dL (8.4-10.2); CARBON DIOXIDE 38 mmol/L (22-29); CHLORIDE 94 mmol/L (98-107); CREATININE, SERUM 0.95 mg/dL (0.72-1.25); EST GLOMERULAR FILTRATION RATE > 60 ML/MIN (60-); GLUCOSE 76 mg/dL (74-118); POTASSIUM 3.4 mmol/L (3.5-5.1); SODIUM 142 mmol/L (136-145)
[2020-09-03] MEDS: NICOTINE 21 MG/EA PATCH TOP SCH (08:40)
[2020-09-03] MEDS: FUROSEMIDE INJ 10 MG/ML 4 ML VIAL IV SCH ×2 (08:40→21:31)
--- NOTE | 2020-09-03 09:46 | Progress Note ---
DATE: SUBJECTIVE: The patient has less leg edema. He has less erythema in his legs. He was able to walk to the bathroom. He still has some dyspnea with exertion. PHYSICAL EXAMINATION: VITAL SIGNS: Blood pressure is 114/72, saturation is 95%, he is on 5 L. HEENT: Shows no facial swelling or erythema. LYMPHATIC: Shows no submandibular, cervical, supraclavicular adenopathy. CARDIAC: Reveals a regular rate and rhythm. Normal S1, S2. LUNGS: Auscultation of lungs reveals crackles at the bases. There is no wheezing. ABDOMEN: Soft and nontender. There is no rebound or guarding. EXTREMITIES: Shows 2 to 3+ leg edema. There is some erythema bilaterally. LABORATORY DATA: White blood cell count is 8.5, hemoglobin is 13.2, and the platelet count is 172. The BUN to creatinine ratio is 22 to 0.95. Electrolytes are within normal limits. IMPRESSION: 1. Cellulitis of the lower extremities with sepsis, present on admission. 2. Acute on chronic right-sided heart failure and cor pulmonale. 3. Chronic obstructive pulmonary disease. 4. Hypertension. 5. Anemia secondary to chronic blood loss. PLAN: 1. Continue current antibiotics. 2. Out of bed as tolerated. 3. Continue oxygen. 4. Judicious use of diuretics. 5. Continue to monitor electrolytes and BUN and creatinine. Josafat Acosta MD [facility] /[id number]
--- NOTE | 2020-09-03 10:43 | NUR ---
THE PATIENT WAS SMOKING IN THE RESTROOM. THIS NURSE EXPLAINED TO THE PATIENT THAT THIS WAS A NO SMOKING FACILITY, AND WHAT WILL HAPPEN DUE TO THE PATIENT BEING ON OXYGEN. 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
[2020-09-03] MEDS: VANCOMYCIN 1GM/NS 250 ML 250 ML IV SCH (12:51)
[2020-09-03] MEDS: CEFEPIME 1GM/NS 0.9% 50 ML 50 ML IV SCH (16:01)
[2020-09-03] MEDS ORDERED: SODIUM CHLORIDE 0.9% 250ML 250 ML ONE (16:04)
--- NOTE | 2020-09-03 19:44 | NUR ---
COMPLETED BEDSIDE SHIFT REPORT AND ROUNDING WITH NIGHT NURSE. PATIENT IN STABLE CONDITION, NO S/S OF DISTRESS NOTED. RESPIRATIONS EVEN AND NONLABORED, ON VENTI MASK @ 15LPM ON CONT. PULSE OX. PATENT ABLE TO VOICE NEEDS. TELEMETRY APPLIED. IV SITE ASYMPTOMATIC AND PATENT, TRANSPARENT DRESSING C/D/I. BED IN LOWEST POSITION AND LOCKED, SIDE RAILS X 2, NONSKID SOCKS APPLIED. CALL LIGHT WITHIN REACH.
[2020-09-04] VITALS (9 sets, daily range): BP systolic 111–127; BP diastolic 61–82
[2020-09-04 05:41] LABS: BASOPHILS % 0.3 % (0.0-1.0); EOSINOPHILS # (AUTO) 0.3 (0.0-0.4); EOSINOPHILS % 3.4 % (0.0-6.0); HEMATOCRIT 50.1 % (38.2-49.6); HEMOGLOBIN 12.5 g/dL (14.0-18.0); LYMPHOCYTES # (AUTO) 1.1 (1.0-3.2); LYMPHOCYTES % 15.4 % (18.0-39.1); MEAN CORPUSCULAR HEMOGLOBIN 18.9 pg (28-32); MEAN CORPUSCULAR VOLUME 75.6 fL (81-99); MONOCYTES # (AUTO) 0.7 (0.2-0.8); MONOCYTES % 8.9 % (4.4-11.3); NEUTROPHILS # (AUTO) 5.3 (2.1-6.9); NEUTROPHILS % 71.6 % (38.7-80.0); PLATELET COUNT 147 x10e3/uL (140-360); RED BLOOD COUNT 6.63 x10e6/uL (4.3-5.7); RED CELL DISTRIBUTION WIDTH 22.2 % (11.7-14.4)
[2020-09-04 06:11] LABS: ALANINE AMINOTRANSFERASE 8 IU/L (0-55); ALBUMIN 3.6 g/dL (3.5-5.0); ALBUMIN/GLOBULIN RATIO 1.4 (0.8-2.0); ALKALINE PHOSPHATASE 70 IU/L (40-150); ANION GAP 13.2 mmol/L (8-16); BLOOD UREA NITROGEN 21 mg/dL (7-26); BUN/CREATININE RATIO 26 (6-25); CALCIUM 8.6 mg/dL (8.4-10.2); CARBON DIOXIDE 38 mmol/L (22-29); CHLORIDE 93 mmol/L (98-107); CREATININE, SERUM 0.81 mg/dL (0.72-1.25); EST GLOMERULAR FILTRATION RATE > 60 ML/MIN (60-); GLUCOSE 78 mg/dL (74-118); POTASSIUM 3.2 mmol/L (3.5-5.1); SODIUM 141 mmol/L (136-145)
--- NOTE | 2020-09-04 07:30 | NUR ---
Bedside shift report received. Patient is awake and in bed currently on high flow 11l nasal cannula. RT is also at the bedside, patient was weaned to 6l and saturation is 97%. Will continue to wean oxygen and monitor patient.
[2020-09-04] MEDS ORDERED: POTASSIUM CHLORIDE 20 MEQ TAB CR PO STA (07:59)
--- NOTE | 2020-09-04 08:00 | NUR ---
IM- progress note O/N see below ROS: no f/c/s/N/V/D/OSORIO/cp/confusion/dizziness/vision changes/focal limb weakness v/s revd PE tired appearing anicteric ns1s2 REDUCED BS soft nt nd ERYTHEMA AND WARMTH OF B/L FORELEGS, WITH ASSOCIATED EDEMA 2+ skin dry flat affect a&ox3; knox labs/meds revd A/P: Cellulitis of B/L forelegs- IV vanco AECOPD/Severe COPD - O2 prn Nicotine dependence- use nicotine patch AECHF- check echo; use lasix IV B/L pulmonary edema- diurese Prop: lovenox Dispo: f/u COVID testing 11-5 cont care; improving; -6 cont abx; COVID negative; cont care; 09-04 caught smoking in room yesterday- started on nicotine patch; cont Cefepime/vanco for cellulitis; cont o2 support for AECOPD. JARRED GUZMÁN MD, PHD.
[2020-09-04] MEDS ORDERED: CEFEPIME HCL 1 GM VIAL IV SCH (09:00)
--- NOTE | 2020-09-04 09:12 | NUR ---
Night nurse reported patient unable to void 2 x. Patient has attempted to void 3 x this morning with very little output. Post void bladder scan shows 999+. Notified Dr. Wade. New orders received for patino placement.
--- NOTE | 2020-09-04 10:00 | NUR ---
16f patino placed, 1400cc clear, yellow urine received upon insertion.
[2020-09-04] MEDS: TAMSULOSIN HCL 0.4 MG CAP PO SCH ×2 (10:04→21:07)
[2020-09-04] MEDS: NICOTINE 21 MG/EA PATCH TOP SCH (10:04)
[2020-09-04] MEDS: FUROSEMIDE INJ 10 MG/ML 4 ML VIAL IV SCH ×2 (11:00→21:07)
--- NOTE | 2020-09-04 13:20 | NUR ---
Patient is becoming increasingly drowsy and a little confused at times. Notified Dr Acosta, new orders received.
[2020-09-04] MEDS: VANCOMYCIN 1GM/NS 250 ML 250 ML IV SCH (13:53)
[2020-09-04 14:01] LABS: ABG HCO3 47 mmol/L (22-26); ABG PCO2 81 mmHg (35-45); ABG PH 7.36 (7.35-7.45); ABG PO2 55 mmHg (80-105); ABG TCO2 49
--- NOTE | 2020-09-04 14:09 | NUR ---
rug cleaning supervisor and viscose cellar charge hand notified of transfer to IMCU order.
--- NOTE | 2020-09-04 14:09 | NUR ---
ABG results reported to Dr. Acosta. Orders received for BIPAP and transfer to [facility].
--- NOTE | 2020-09-04 14:57 | NUR ---
Report called to IMCU. Patient will be transferring to room 188
--- NOTE | 2020-09-04 15:13 | Progress Note ---
DATE: SUBJECTIVE: The patient is slightly more confused today. Brown was placed, and has 1400 mL of urinary retention. His oxygen was increased temporarily to 11 L last night, but is now back down to 5 L. PHYSICAL EXAMINATION: VITAL SIGNS: The blood pressure is 111/65 and saturation is 94% on 5 L, and pulse is 86. HEENT: Shows no facial swelling or erythema. LYMPHATIC: Shows no submandibular, cervical, or supraclavicular adenopathy. CARDIAC: Reveals regular rate and rhythm. Normal S1, S2. LUNGS: Auscultation of lungs shows decreased breath sounds at the bases. There is no wheezing. ABDOMEN: Soft and nontender. There is no rebound or guarding. EXTREMITIES: There is 2 to 3+ leg edema. LABORATORY DATA: White blood cell count is 7.3, hemoglobin is 12.5, and the platelet count is 147. His BUN to creatinine ratio is 21 to 0.1. The potassium is 3.2 and the other electrolytes within normal limits. IMPRESSION: 1. Metabolic encephalopathy. 2. Acute on chronic right-sided heart failure. 3. Cellulitis of the lower extremities with sepsis, present on admission. 4. Chronic obstructive pulmonary disease. 5. Hypertension. 6. Anemia secondary to chronic blood loss. PLAN: 1. Continue antibiotics. 2. Out of bed as tolerated. 3. Continue oxygen. 4. Continue diuretics. 5. Chest x-ray and ABG. Josafat Acosta MD [facility]/MODL /[id number]
--- NOTE | 2020-09-04 15:45 | NUR ---
Patient transferred to room 188.
[2020-09-04] MEDS: CEFEPIME 1GM/NS 0.9% 50 ML 50 ML IV SCH (16:10)
[2020-09-05] VITALS (9 sets, daily range): BP systolic 90–133; BP diastolic 64–81
--- NOTE | 2020-09-05 06:16 | NUR ---
IM- progress note O/N see below ROS: no f/c/s/N/V/D/OSORIO/cp/confusion/dizziness/vision changes/focal limb weakness v/s revd PE tired appearing anicteric ns1s2 REDUCED BS soft nt nd ERYTHEMA AND WARMTH OF B/L FORELEGS, WITH ASSOCIATED EDEMA 2+ skin dry flat affect a&ox3; knox labs/meds revd A/P: Cellulitis of B/L forelegs- IV vanco AECOPD/Severe COPD - O2 prn Nicotine dependence- use nicotine patch AECHF- check echo; use lasix IV B/L pulmonary edema- diurese Prop: lovenox Dispo: f/u COVID testing 11-5 cont care; improving; 11-6 cont abx; COVID negative; cont care; 11-7 caught smoking in room yesterday- started on nicotine patch; cont Cefepime/vanco for cellulitis; cont o2 support for AECOPD. 11-8 Hypercapneic Hypoxemic resp failure. Check K JARRED GUZMÁN MD, PHD.
--- NOTE | 2020-09-05 07:47 | Diagnostic Imaging Report ---
EXAMINATION: CHEST SINGLE (PORTABLE) COMPARISON: Chest x-ray 09/01/2020 INDICATION: Shortness of breath, CHF ^resp failure ^[id number] ^[id number] DISCUSSION: Frontal view of the chest obtained at 0653 hours. HEART AND MEDIASTINUM: Stable cardiomegaly and aortic tortuosity LINES: None. LUNGS/PLEURA: Diffuse pulmonary hyperinflation suggestive of small airways disease. The pulmonary vasculature is prominent. Prominence of the pulmonary interstitium is redemonstrated. No confluent infiltrates. No pleural effusion or pneumothorax. BONES AND SOFT TISSUES: No focal osseous lesion. The soft tissues are normal. IMPRESSION: No change in prominence of the pulmonary interstitium suggestive of edema. Increasing pulmonary vascular congestion. Signed by: Dr. Flor Devine MD on 09/05/2020 7:43 AM
[2020-09-05] MEDS: FUROSEMIDE INJ 10 MG/ML 4 ML VIAL IV SCH ×2 (08:04→20:18)
[2020-09-05] MEDS: NICOTINE 21 MG/EA PATCH TOP SCH (08:04)
[2020-09-05] MEDS: TAMSULOSIN HCL 0.4 MG CAP PO SCH ×2 (08:04→20:18)
--- NOTE | 2020-09-05 11:30 | NUR ---
Okay for Bipap use at night and PRN. Patient placed on 11L Hi-Alex nasal cannula, tolerating well.
--- NOTE | 2020-09-05 11:50 | Progress Note ---
DATE: SUBJECTIVE: The patient is still on BiPAP. He is not having any fevers. There is no chest pain. PHYSICAL EXAMINATION: VITAL SIGNS: The blood pressure is 132/64, pulse ox 95%, and temperature is 98.1. Pulse is 112. Respiratory rate is 22. HEENT: No facial swelling or erythema. LYMPHATIC: No submandibular, cervical, or supraclavicular adenopathy. CARDIAC: Regular rate and rhythm with normal S1, S2. LUNGS: Auscultation of lungs reveals crackles and rhonchi bilaterally. There is no wheezing. ABDOMEN: Soft, nontender. There is no rebound or guarding. EXTREMITIES: 2 to 3+ leg edema. LABORATORY DATA: White blood cell count is 7.34, hemoglobin is 12.5, and the platelet count is 147. The BUN to creatinine ratio is 21 to 0.81. The potassium is 3.2 and the other electrolytes are within normal limits. RADIOGRAPHIC DATA: Chest x-ray shows bilateral interstitial lung disease. Mild bilateral interstitial edema. IMPRESSION: 1. Acute on chronic right-sided heart failure. 2. Cellulitis of the lower extremities with sepsis, present on admission. 3. Acute on chronic respiratory failure. 4. Chronic obstructive pulmonary disease. 5. Hypertension. 6. Anemia secondary to chronic blood loss. PLAN: 1. Continue BiPAP at night, during the day as needed. 2. Continue oxygen. 3. Judicious use of diuretics. 4. Antibiotics. MD FLAVIO Pratt/KERRI /[id number]
[2020-09-05] MEDS: VANCOMYCIN 1GM/NS 250 ML 250 ML IV SCH (14:18)
[2020-09-05] MEDS: CEFEPIME 1GM/NS 0.9% 50 ML 50 ML IV SCH (16:31)
--- NOTE | 2020-09-05 21:33 | NUR ---
Notified ,C. pt. had a run of 11 V-tach. BP 128/76. Pt. getting lasix 40mg IV every evening and the potassium level this morning was 3.6. Orders received.
[2020-09-05] MEDS: METOPROLOL TARTRATE 25 MG TAB PO SCH (21:57)
[2020-09-06] VITALS (7 sets, daily range): BP systolic 113–128; BP diastolic 62–94
--- NOTE | 2020-09-06 03:14 | NUR ---
IM- progress note O/N see below ROS: no f/c/s/N/V/D/OSORIO/cp/confusion/dizziness/vision changes/focal limb weakness v/s revd PE tired appearing anicteric ns1s2 REDUCED BS soft nt nd ERYTHEMA AND WARMTH OF B/L FORELEGS, WITH ASSOCIATED EDEMA 2+ skin dry flat affect a&ox3; knox labs/meds revd A/P: Cellulitis of B/L forelegs- IV vanco AECOPD/Severe COPD - O2 prn Nicotine dependence- use nicotine patch AECHF- check echo; use lasix IV B/L pulmonary edema- diurese Prop: lovenox Dispo: f/u COVID testing 11- cont care; improving; -6 cont abx; COVID negative; cont care; 7 caught smoking in room yesterday- started on nicotine patch; cont Cefepime/vanco for cellulitis; cont o2 support for AECOPD. 11-8 Hypercapneic Hypoxemic resp failure. Check K - change vanco to BID. cont BIPAP JARRED GUZMÁN MD, PHD.
[2020-09-06] MEDS ORDERED: VANCOMYCIN 1GM/NS 250 ML 250 ML IV SCH (04:00)
[2020-09-06] MEDS: METOPROLOL TARTRATE 25 MG TAB PO SCH ×3 (06:43→20:28)
[2020-09-06] MEDS: TAMSULOSIN HCL 0.4 MG CAP PO SCH ×2 (09:20→20:31)
[2020-09-06] MEDS: NICOTINE 21 MG/EA PATCH TOP SCH (09:20)
[2020-09-06] MEDS: LATANOPROST(OPTH) 2.5 ML BTL OP SCH (09:20)
[2020-09-06] MEDS: FUROSEMIDE INJ 10 MG/ML 4 ML VIAL IV SCH ×2 (09:20→20:28)
[2020-09-06] MEDS: CEFEPIME 1GM/NS 0.9% 50 ML 50 ML IV SCH (15:58)
--- NOTE | 2020-09-06 17:26 | Progress Note ---
DATE: Pulmonary Critical Care Progress Note SUBJECTIVE: The patient is currently on oxygen at 12 L. Overall, he feels better. He has less leg edema. PHYSICAL EXAMINATION: VITAL SIGNS: The blood pressure is 128/71, saturation is 94% on 2 L, and respiratory rate is 22. The pulse is 73. The temperature is 99.4. HEENT: Shows no facial swelling or erythema. LYMPHATIC: Shows no submandibular, cervical, or supraclavicular adenopathy. CARDIAC: Reveals regular rate and rhythm with normal S1 and S2. LUNGS: Auscultation of lungs reveals decreased breath sounds at the bases. There is no wheezing. ABDOMEN: Soft and nontender. There is no rebound or guarding. EXTREMITIES: Show no leg edema or calf tenderness. There is no cyanosis or clubbing. SKIN: Shows no rashes. NEUROLOGICAL: Shows no focal abnormalities. LABORATORY DATA: White blood cell count is 7.34, hemoglobin is 12.5, and the platelet count is 147. The BUN to creatinine ratio is normal. The other electrolytes are within normal limits. IMPRESSION: 1. Etmvz-qn-nghbxtf systolic congestive heart failure. 2. Cellulitis of the lower extremities with sepsis, present on admission. 3. Tgulp-hr-syghjwx respiratory failure. 4. Chronic obstructive pulmonary disease. 5. Anemia. 6. Hypertension. PLAN: 1. Continue diuretics. 2. Cardiology consultation. 3. Continue antibiotics. 4. Wean oxygen. 5. Repeat chest x-ray. 6. Repeat lab work. Josafat Acosta MD [facility]/KERRI /[id number]
[2020-09-06] MEDS: VANCOMYCIN 1GM/NS 250 ML 250 ML IV SCH (17:48)
--- NOTE | 2020-09-06 17:50 | NUR ---
CONSULT CALLED TO DR JOHNSON.
--- NOTE | 2020-09-06 18:41 | Diagnostic Imaging Report ---
EXAMINATION: CHEST SINGLE (PORTABLE) COMPARISON: Chest x-ray 09/05/2020 INDICATION: Dyspnea. DISCUSSION: HEART AND MEDIASTINUM: Stable mild cardiomegaly and aortic tortuosity LINES: None. LUNGS/PLEURA: Redemonstration of diffuse coarsening of the pulmonary interstitium associated with superimposed patchy density predominantly perihilar/lower lobes, the latter increased since the prior exam. No pleural effusion or pneumothorax. BONES AND SOFT TISSUES: No focal osseous lesion. The soft tissues are normal. IMPRESSION: Interval increase in bilateral patchy density superimposed on interstitial changes predominantly in the lower lobes. Signed by: Dr. Pascual Armstrong M.D. on 09/06/2020 6:38 PM
[2020-09-06] MEDS: ZOLPIDEM TARTRATE 5 MG TAB PO PRN (20:31)
[2020-09-07] VITALS (8 sets, daily range): BP systolic 91–132; BP diastolic 53–73
[2020-09-07 04:52] LABS: BASOPHILS % 0.4 % (0.0-1.0); EOSINOPHILS # (AUTO) 0.4 (0.0-0.4); EOSINOPHILS % 5.4 % (0.0-6.0); HEMATOCRIT 46.3 % (38.2-49.6); HEMOGLOBIN 11.7 g/dL (14.0-18.0); LYMPHOCYTES # (AUTO) 1.3 (1.0-3.2); LYMPHOCYTES % 15.8 % (18.0-39.1); MEAN CORPUSCULAR HEMOGLOBIN 19.2 pg (28-32); MEAN CORPUSCULAR HGB CONC 25.3 g/dL (31-35); MEAN CORPUSCULAR VOLUME 76.2 fL (81-99); MONOCYTES # (AUTO) 0.7 (0.2-0.8); MONOCYTES % 8.7 % (4.4-11.3); NEUTROPHILS # (AUTO) 5.5 (2.1-6.9); NEUTROPHILS % 69.4 % (38.7-80.0); PLATELET COUNT 126 x10e3/uL (140-360); RED BLOOD COUNT 6.08 x10e6/uL (4.3-5.7); RED CELL DISTRIBUTION WIDTH 21.2 % (11.7-14.4)
[2020-09-07 05:16] LABS: ALANINE AMINOTRANSFERASE 8 IU/L (0-55); ALBUMIN 3.2 g/dL (3.5-5.0); ALBUMIN/GLOBULIN RATIO 1.2 (0.8-2.0); ALKALINE PHOSPHATASE 59 IU/L (40-150); ANION GAP 11.4 mmol/L (8-16); BLOOD UREA NITROGEN 19 mg/dL (7-26); BUN/CREATININE RATIO 24 (6-25); CALCIUM 8.8 mg/dL (8.4-10.2); CHLORIDE 91 mmol/L (98-107); EST GLOMERULAR FILTRATION RATE > 60 ML/MIN (60-); GLUCOSE 90 mg/dL (74-118); POTASSIUM 3.4 mmol/L (3.5-5.1); SODIUM 143 mmol/L (136-145)
[2020-09-07 05:27] LABS: CARBON DIOXIDE 44 mmol/L (22-29)
[2020-09-07] MEDS: VANCOMYCIN 1GM/NS 250 ML 250 ML IV SCH ×2 (05:57→17:06)
[2020-09-07] MEDS: METOPROLOL TARTRATE 25 MG TAB PO SCH ×3 (06:02→19:47)
[2020-09-07] MEDS ORDERED: POTASSIUM CHLORIDE 20 MEQ TAB CR PO ONE ×2 (06:26→08:51)
--- NOTE | 2020-09-07 06:27 | NUR ---
IM- progress note O/N see below ROS: no f/c/s/N/V/D/OSORIO/cp/confusion/dizziness/vision changes/focal limb weakness v/s revd PE tired appearing anicteric ns1s2 REDUCED BS soft nt nd ERYTHEMA AND WARMTH OF B/L FORELEGS, WITH ASSOCIATED EDEMA 2+ skin dry flat affect a&ox3; knox labs/meds revd A/P: Cellulitis of B/L forelegs- IV vanco AECOPD/Severe COPD - O2 prn Nicotine dependence- use nicotine patch AECHF- check echo; use lasix IV B/L pulmonary edema- diurese Prop: lovenox Dispo: f/u COVID testing - cont care; improving; -6 cont abx; COVID negative; cont care; 09-04 caught smoking in room yesterday- started on nicotine patch; cont Cefepime/vanco for cellulitis; cont o2 support for AECOPD. 11-8 Hypercapneic Hypoxemic resp failure. Check K - change vanco to BID. cont BIPAP - replace K; SNF eval, Pt now refusing SNF. JARRED GUZMÁN MD, PHD.
[2020-09-07] MEDS: FUROSEMIDE INJ 10 MG/ML 4 ML VIAL IV SCH ×2 (08:36→19:47)
[2020-09-07] MEDS: LATANOPROST(OPTH) 2.5 ML BTL OP SCH (08:36)
[2020-09-07] MEDS: TAMSULOSIN HCL 0.4 MG CAP PO SCH ×2 (08:37→19:47)
[2020-09-07] MEDS: NICOTINE 21 MG/EA PATCH TOP SCH (08:37)
--- NOTE | 2020-09-07 09:29 | Progress Note ---
DATE: SUBJECTIVE: The patient is currently on 11 L of oxygen. He was seen by Cardiology yesterday. He has decreased ejection fraction on echocardiogram. He is not responding well to Lasix alone. PHYSICAL EXAMINATION: VITAL SIGNS: Blood pressure is 121/76, saturation is 99% on 11 L. Pulse is 96. HEENT: Shows no facial swelling or erythema. LYMPHATIC: Shows no submandibular, cervical or supraclavicular adenopathy. CARDIAC: Reveals regular rate and rhythm with normal S1 and S2. LUNGS: Auscultation of lungs shows decreased breath sounds at the bases. There is no wheezing. ABDOMEN: Soft and nontender. There is no rebound or guarding. EXTREMITIES: Shows 2 to 3+ leg edema. LABORATORY DATA: BUN to creatinine ratio is 19 to 0.8. The carbon dioxide is 44, and the potassium is 3.4. The other electrolytes are within normal limits. Albumin is 3.2. White blood cell count is 7.9, hemoglobin is 11.7 and platelet count is 126. IMPRESSION: 1. Rolaf-xb-gthyzog systolic congestive heart failure. 2. Cellulitis of the lower extremities with sepsis, present on admission. 3. Acute on chronic respiratory failure. 4. Chronic obstructive pulmonary disease. 5. Anemia. 6. Hypertension. PLAN: 1. Begin Diamox in addition to Lasix. 2. Continue Cardiology consultation. 3. Continue antibiotics. 4. Continue to wean oxygen. 5. Repeat chest x-ray in the morning.. MD FLAVIO Pratt/KERIR /[id number]
--- NOTE | 2020-09-07 10:09 | Consultation ---
DATE OF CONSULTATION: 09/07/2020 CARDIOLOGY CONSULTATION: REASON FOR CONSULTATION: Heart failure. HISTORY OF PRESENT ILLNESS: A 74-year-old man with history of COPD, hypertension, type 2 diabetes mellitus, chronic systolic heart failure, and memory issues, presents to [facility] via the emergency department, complains of worsening edema to lower extremities associated with erythema. He was admitted for treatment of cellulitis and acute heart failure, initiated on diuretics and oxygen supplementation. Throughout this hospital stay, he has noted some improvement in his volume status. He continues to require oxygen. He denies any chest discomfort or syncope. He is on telemetry, sinus rhythm with alternating with wide-complex tachycardia in the setting of underlying bundle branch block with QRS morphology similar on the wide-complex tachycardia that are preceding sinus rhythm. This has been a nonsustained run observed on tele. Echocardiogram done during this hospitalization reveals normal left ventricular size and wall thickness with mhcniymj-el-lrwvzx impairment left ventricular systolic function with left ejection fraction of 35% to 40%. Impaired LV relaxation and elevated LV filling pressures. No significant valvular abnormalities. No pericardial effusion. Ozzy seems to have issues remembering. PAST MEDICAL HISTORY: Attempted to contact , Albina Quintero, phone #[phone], however, we are not getting through phones not being answered at this point in time. We will attempt further contacts at a later date. REVIEW OF SYSTEMS: A 12-system review negative except for as noted above. PAST SURGICAL HISTORY: Per chart review, hernia repair. SOCIAL HISTORY: Smoker. No alcohol or drugs. ALLERGIES: NO KNOWN DRUG ALLERGIES. FAMILY HISTORY: Noncontributory. PHYSICAL EXAMINATION: VITAL SIGNS: Temperature 98.1, heart rate 81, respiratory rate 22, blood pressure 114/64, and O2 saturation 95% on nasal cannula. GENERAL: In no acute distress. Chronically ill-appearing. NECK: With distended JVD, 45-degree head of bed elevation. CHEST: With decreased breath sounds and scattered rhonchi. Increased AP diameter chest, prolonged expiratory phase. CARDIOVASCULAR: Regular rate and rhythm. Normal S1 and S2. Distant heart sounds. No S3 or S4. ABDOMEN: Soft. Bowel sounds positive. EXTREMITIES: With trace edema and hyperpigmented lower extremities. CARDIOVASCULAR MEDICATIONS: Reviewed. Nicotine patch 21 mg daily, furosemide 40 mg IV every 12 hours, metoprolol tartrate 12.5 mg every 8 hours, receiving vancomycin and cefepime. STUDIES: Reviewed. White blood cells 7.9, hemoglobin 11.7, and platelets 126. INR 0.9. Sodium 143, potassium 3.9, chloride 91, bicarbonate 44, BUN 19, creatinine 0.8, glucose 90, calcium 9.8, and magnesium 2.4. Total bilirubin 0.4, AST 17, ALT 8, alkaline phosphatase 59. Total protein 5.8 and albumin 3.2. Vancomycin 11.9. ABG 7.36/81/55. Coronavirus nondetected. Cultures, no growth after 5 days. Initial chest x-ray with bilateral lower lung predominant interstitial opacities. Also noted atherosclerotic calcifications of the thoracic aorta. Most recent chest x-ray with interval increase in bilateral patchy density superimposed interstitial changes predominantly in the lower lobes. ASSESSMENT AND PLAN: 1. Qelhz-lj-jxhtwho fceaxdid-iq-yweyua systolic heart failure with left ventricular ejection fraction of 35% to 40%. 2. Atherosclerotic vascular disease. 3. Chronic obstructive pulmonary disease. 4. Anemia. 5. Hypertension and dyslipidemia. 6. Lower extremity cellulitis. 7. Pbjyp-wi-axtkdkk respiratory failure. RECOMMEND: The patient is on diuretics, showing contraction alkalosis on lab work in the setting of underlying COPD. Initial bicarb was 36. It is climbing up to 44. His BUN to creatinine ratio remains stable. Followup chest x-ray suggests worsening of infiltrates. He still remains with JVD on exam. Consider up titration of diuretics with close monitoring of his acid-base status. Consider acetazolamide. We will discuss further with Pulmonary and coordinate care. Attempt to obtain further information from family. Might benefit from coronary ischemic evaluation during hospital stay, however, we will attempt to obtain further information from family. Continue to correct electrolytes as needed. Replete potassium and monitor on telemetry given wide-complex tachycardia, differential including ventricular tachycardia in the setting of underlying cardiomyopathy. Thank you for the opportunity to participate in the care of Ozzy. Please call with any questions. Jean Ovalle MD [facility]/MODL /[id number]
[2020-09-07] MEDS: ACETAZOLAMIDE SODIUM 500 MG/VIAL IV SCH (10:39)
--- NOTE | 2020-09-07 13:02 | NUR ---
WENT TO SPEAK WITH PT ABOUT SNF, HE STATES HE IS FINE AND WALKS GOOD WITH HIS WALKER, HE REFUSES SNF, NOTIFIED .
--- NOTE | 2020-09-07 14:57 | NUR ---
SNF EVAL ORDERED PT REFUSING SNF AMBULATING 250 FEET WITH P.T. UA AND BC NEGATIVE WEANED FROM 11 LITERS 02 N.C. TO 6 LITERS TODAY CONTINUE TO WEAN 02 WILL NEED HOME 02 EVAL WHEN 02 WEANED
[2020-09-07] MEDS: CEFEPIME 1GM/NS 0.9% 50 ML 50 ML IV SCH (16:19)
--- NOTE | 2020-09-07 19:06 | NUR ---
PATIENT CONFUSED; PULLED IV TUBING APART, ALMOST PULLED IV LINE OUT, FECES ON THE FLOOR AND ALL OVER PT FEET, PT KEEPS PULLING O2 OFF AND DESATS WITHOUT IT, UNABLE TO KEEP BIPAP ON HIM. DR GUZMÁN CALLED AND NOTIFIED AND ORDERS FOR XANAX ENTERED.
[2020-09-07] MEDS: ZOLPIDEM TARTRATE 5 MG TAB PO PRN (19:47)
[2020-09-07] MEDS: ALPRAZOLAM 0.5 MG TAB PO PRN (19:47)
[2020-09-08] VITALS (8 sets, daily range): BP systolic 98–126; BP diastolic 54–77
[2020-09-08] MEDS: METOPROLOL TARTRATE 25 MG TAB PO SCH ×3 (04:02→21:30)
[2020-09-08] MEDS: ALPRAZOLAM 0.5 MG TAB PO PRN (04:02)
[2020-09-08] MEDS: VANCOMYCIN 1GM/NS 250 ML 250 ML IV SCH ×2 (04:02→18:23)
[2020-09-08 04:59] LABS: BASOPHILS % 0.4 % (0.0-1.0); EOSINOPHILS # (AUTO) 0.5 (0.0-0.4); EOSINOPHILS % 6.7 % (0.0-6.0); HEMATOCRIT 45.8 % (38.2-49.6); HEMOGLOBIN 11.8 g/dL (14.0-18.0); LYMPHOCYTES # (AUTO) 1.2 (1.0-3.2); LYMPHOCYTES % 16.4 % (18.0-39.1); MEAN CORPUSCULAR HEMOGLOBIN 19.8 pg (28-32); MEAN CORPUSCULAR HGB CONC 25.8 g/dL (31-35); MEAN CORPUSCULAR VOLUME 76.8 fL (81-99); MONOCYTES # (AUTO) 0.6 (0.2-0.8); MONOCYTES % 7.9 % (4.4-11.3); NEUTROPHILS # (AUTO) 5.1 (2.1-6.9); NEUTROPHILS % 68.2 % (38.7-80.0); PLATELET COUNT 134 x10e3/uL (140-360); RED BLOOD COUNT 5.96 x10e6/uL (4.3-5.7); RED CELL DISTRIBUTION WIDTH 22.1 % (11.7-14.4)
[2020-09-08 05:12] LABS: ALANINE AMINOTRANSFERASE 8 IU/L (0-55); ALBUMIN 3.2 g/dL (3.5-5.0); ALBUMIN/GLOBULIN RATIO 1.1 (0.8-2.0); ALKALINE PHOSPHATASE 58 IU/L (40-150); ANION GAP 10.4 mmol/L (8-16); BLOOD UREA NITROGEN 23 mg/dL (7-26); BUN/CREATININE RATIO 27 (6-25); CALCIUM 8.9 mg/dL (8.4-10.2); CARBON DIOXIDE 39 mmol/L (22-29); CHLORIDE 94 mmol/L (98-107); CREATININE, SERUM 0.85 mg/dL (0.72-1.25); EST GLOMERULAR FILTRATION RATE > 60 ML/MIN (60-); GLUCOSE 92 mg/dL (74-118); POTASSIUM 3.4 mmol/L (3.5-5.1); SODIUM 140 mmol/L (136-145)
[2020-09-08 07:31] LABS: HYPOCHROMASIA FEW; TARGET CELLS FEW
[2020-09-08 07:32] LABS: PLATELET ESTIMATE SLIGHTLY DECREASED; PLATELET MORPHOLOGY COMMENT NORMAL; RBC MORPHOLOGY COMMENT ABNORMAL; SCHISTOCYTES FEW; STOMATOCYTES FEW
[2020-09-08] MEDS: NICOTINE 21 MG/EA PATCH TOP SCH (08:40)
[2020-09-08] MEDS: LATANOPROST(OPTH) 2.5 ML BTL OP SCH (08:40)
[2020-09-08] MEDS: FUROSEMIDE INJ 10 MG/ML 4 ML VIAL IV SCH ×2 (08:40→20:15)
[2020-09-08] MEDS: TAMSULOSIN HCL 0.4 MG CAP PO SCH ×2 (08:40→20:15)
[2020-09-08] MEDS: ACETAZOLAMIDE SODIUM 500 MG/VIAL IV SCH ×2 (08:40→08:44)
[2020-09-08] MEDS ORDERED: POTASSIUM CHLORIDE 20 MEQ TAB CR PO ONE (09:58)
--- NOTE | 2020-09-08 10:10 | NUR ---
IM- progress note O/N see below ROS: no f/c/s/N/V/D/OSORIO/cp/confusion/dizziness/vision changes/focal limb weakness v/s revd PE tired appearing anicteric ns1s2 REDUCED BS soft nt nd ERYTHEMA AND WARMTH OF B/L FORELEGS, WITH ASSOCIATED EDEMA 2+ skin dry flat affect a&ox3; knox labs/meds revd A/P: Cellulitis of B/L forelegs- IV vanco AECOPD/Severe COPD - O2 prn Nicotine dependence- use nicotine patch AECHF- check echo; use lasix IV B/L pulmonary edema- diurese Prop: lovenox Dispo: f/u COVID testing 09-02 cont care; improving; 09-03 cont abx; COVID negative; cont care; 09-04 caught smoking in room yesterday- started on nicotine patch; cont Cefepime/vanco for cellulitis; cont o2 support for AECOPD. 09-05 Hypercapneic Hypoxemic resp failure. Check K 09-06 change vanco to BID. cont BIPAP 09-07 replace K; SNF eval, Pt now refusing SNF. 09-08 replace K; Acute Metabolic Encephalopathy- xanax; AECOPD- and Acute resp failure- BIPAP. JARRED GUZMÁN MD, PHD.
--- NOTE | 2020-09-08 13:31 | Progress Note ---
DATE: SUBJECTIVE: The patient still has some dyspnea. He is still on nasal cannula 10 L. He has no fevers. PHYSICAL EXAMINATION: VITAL SIGNS: His blood pressure is 104/56, his saturation is 97% on 10 L, and his pulse is 94. HEENT: Shows no facial swelling or erythema. LYMPHATIC: Shows no submandibular, cervical, or supraclavicular adenopathy. CARDIAC: Reveals a regular rate and rhythm with normal S1 and S2. LUNGS: Auscultation of lungs reveals rhonchorous breath sounds bilaterally. There is no wheezing. ABDOMEN: Soft and nontender. There is no rebound or guarding. EXTREMITIES: Show 1 to 2+ leg edema. IMPRESSION: 1. Bgrhc-pl-xuenzfo systolic congestive heart failure. 2. Cellulitis of the lower extremities, present on admission. 3. Xnnri-nu-moxcrqz respiratory failure. 4. Chronic obstructive pulmonary disease. 5. Anemia. 6. Hypertension. PLAN: 1. Continue current diuretics. 2. Continue current cardiac regimen. 3. Await swallowing evaluation. 4. Continue oxygen. 5. Continue antibiotics. Josafat Acosta MD [facility]/MODL /[id number]
--- NOTE | 2020-09-08 14:35 | Diagnostic Imaging Report ---
Chest, 2 views, 09/08/2020. History: Shortness of breath. Comparison: 09/06/2020. Findings: The cardiomediastinal silhouette and pulmonary vasculature are prominent. There is bilateral interstitial prominence. Patchy bibasilar opacities are unchanged. There are no acute osseous or soft tissue abnormalities. Impression: CHF with bibasilar opacities which may represent atelectasis or pneumonia. Signed by: Nando Messina on 09/08/2020 2:32 PM
[2020-09-08] MEDS: CEFEPIME 1GM/NS 0.9% 50 ML 50 ML IV SCH (15:33)
[2020-09-08] MEDS: ZOLPIDEM TARTRATE 5 MG TAB PO PRN (21:30)
--- NOTE | 2020-09-08 22:43 | Progress Note ---
DATE: 09/08/2020 Cardiology Progress Note SUBJECTIVE: Ozzy denies any chest pain. He reports some persistent dyspnea. He is agreeable to proceed with coronary angiography and possible intervention today after discussing findings of systolic heart failure, for which the patient does not have a recollection of having before nor having had any ischemia workup done in the past. Indications, alternatives, risks, and benefits for coronary angiography and possible coronary interventions were discussed. The patient voices understanding and agrees to proceed. Scheduled for tomorrow. OBJECTIVE: VITAL SIGNS: Temperature 97.9, heart rate 85, blood pressure 98/56, respiratory rate 20, and O2 saturation 93%. GENERAL: In no acute distress. Alert. NECK: No JVD. CHEST: Clear to auscultation. CARDIOVASCULAR: Regular rate and rhythm. Normal S1, S2. No S3 or S4. ABDOMEN: Soft. EXTREMITIES: No edema. CARDIOVASCULAR MEDICATIONS: Reviewed, on nicotine patch, furosemide 40 mg IV every 12 hours, tamsulosin 0.4 mg every 12 hours, metoprolol tartrate 12.5 mg every 8 hours. STUDIES: Reviewed. Creatinine 0.6, glucose 92. White blood cells 7.4, hemoglobin 11.8, platelets 134. INR 0.9. ASSESSMENT AND PLAN: A 74-year-old man with presents with acute systolic heart failure, chronic obstructive pulmonary disease, tobacco abuse, and hypertension. RECOMMENDATIONS: Ischemic evaluation scheduled for tomorrow, coronary angiography. Continue current cardiovascular medications. Discussed with the patient's . Jean Ovalle MD AFTamara/MODSharon /[id number]
[2020-09-08] MEDS ORDERED: SODIUM CHLORIDE 0.9% 1000ML 1,000 ML IV SCH (23:55)
[2020-09-09] VITALS (14 sets, daily range): BP systolic 106–140; BP diastolic 64–78
--- NOTE | 2020-09-09 04:45 | NUR ---
called and spoke to ,Albina Quintero, obtained consent for heart cath today; this nurse and Rui DAWKINS as the witnesses.
--- NOTE | 2020-09-09 05:02 | NUR ---
IM- progress note O/N see below ROS: no f/c/s/N/V/D/OSORIO/cp/confusion/dizziness/vision changes/focal limb weakness v/s revd PE tired appearing anicteric ns1s2 REDUCED BS soft nt nd ERYTHEMA AND WARMTH OF B/L FORELEGS, WITH ASSOCIATED EDEMA 2+ skin dry flat affect a&ox3; knox labs/meds revd A/P: Cellulitis of B/L forelegs- IV vanco AECOPD/Severe COPD - O2 prn Nicotine dependence- use nicotine patch AECHF- check echo; use lasix IV B/L pulmonary edema- diurese Prop: lovenox Dispo: f/u COVID testing - cont care; improving; 09-03 cont abx; COVID negative; cont care; 09-04 caught smoking in room yesterday- started on nicotine patch; cont Cefepime/vanco for cellulitis; cont o2 support for AECOPD. 11-8 Hypercapneic Hypoxemic resp failure. Check K 09-06 change vanco to BID. cont BIPAP - replace K; SNF eval, Pt now refusing SNF. 09-08 replace K; Acute Metabolic Encephalopathy- xanax; AECOPD- and Acute resp failure- BIPAP. -12 check BMP; contraction alkalosis present; LHC pending today. JARRED GUZMÁN MD, PHD.
[2020-09-09 05:14] LABS: BASOPHILS % 0.6 % (0.0-1.0); EOSINOPHILS # (AUTO) 0.5 (0.0-0.4); EOSINOPHILS % 7.7 % (0.0-6.0); HEMATOCRIT 46.9 % (38.2-49.6); HEMOGLOBIN 11.8 g/dL (14.0-18.0); LYMPHOCYTES # (AUTO) 1.3 (1.0-3.2); MEAN CORPUSCULAR HEMOGLOBIN 19.2 pg (28-32); MEAN CORPUSCULAR HGB CONC 25.2 g/dL (31-35); MEAN CORPUSCULAR VOLUME 76.5 fL (81-99); MONOCYTES # (AUTO) 0.6 (0.2-0.8); MONOCYTES % 9.5 % (4.4-11.3); PLATELET COUNT 130 x10e3/uL (140-360); RED BLOOD COUNT 6.13 x10e6/uL (4.3-5.7); RED CELL DISTRIBUTION WIDTH 21.8 % (11.7-14.4)
[2020-09-09 05:21] LABS: INR 0.97; PROTHROMBIN TIME 13.4 seconds (11.9-14.5)
[2020-09-09 05:22] LABS: PARTIAL THROMBOPLASTIN TIME 29.9 seconds (23.8-35.5)
[2020-09-09 05:36] LABS: ANION GAP 10.8 mmol/L (8-16); BLOOD UREA NITROGEN 21 mg/dL (7-26); BUN/CREATININE RATIO 26 (6-25); CALCIUM 8.7 mg/dL (8.4-10.2); CARBON DIOXIDE 39 mmol/L (22-29); CHLORIDE 96 mmol/L (98-107); CREATININE, SERUM 0.81 mg/dL (0.72-1.25); EST GLOMERULAR FILTRATION RATE > 60 ML/MIN (60-); GLUCOSE 90 mg/dL (74-118); POTASSIUM 3.8 mmol/L (3.5-5.1); SODIUM 142 mmol/L (136-145)
[2020-09-09] MEDS: METOPROLOL TARTRATE 25 MG TAB PO SCH (06:00)
[2020-09-09] MEDS: VANCOMYCIN 1GM/NS 250 ML 250 ML IV SCH ×3 (06:21→19:14)
--- NOTE | 2020-09-09 06:24 | NUR ---
bed bath with Hibiclens given, linen changed. patient tolerated well, no distress noted, vitals checked.
[2020-09-09 07:01] LABS: HYPOCHROMASIA SLIGHT
[2020-09-09 07:02] LABS: ANISOCYTOSIS MODERATE; MICROCYTOSIS SLIGHT; RBC MORPHOLOGY COMMENT ABNORMAL
[2020-09-09 07:03] LABS: PLATELET ESTIMATE SLIGHTLY DECREASED; PLATELET MORPHOLOGY COMMENT NORMAL
[2020-09-09] MEDS: ACETAZOLAMIDE SODIUM 500 MG/VIAL IV SCH (08:17)
--- NOTE | 2020-09-09 08:17 | NUR ---
per pharmacy Diamox IV still not avaliable and is on back order.
[2020-09-09] MEDS: TAMSULOSIN HCL 0.4 MG CAP PO SCH ×2 (09:00→20:08)
[2020-09-09] MEDS ORDERED: LIDOCAINE HCL 2% LOCAL 20 ML VIAL ONE (09:26)
[2020-09-09] MEDS: FUROSEMIDE INJ 10 MG/ML 4 ML VIAL IV SCH ×2 (09:26→20:08)
[2020-09-09] MEDS ORDERED: HEPARIN SOD/SOD CHLORIDE 2,000 ML ONE (09:26)
[2020-09-09] MEDS: LATANOPROST(OPTH) 2.5 ML BTL OP SCH (09:26)
[2020-09-09] MEDS ORDERED: MIDAZOLAM HCL 2 MG/2 ML VIAL ONE (09:26)
[2020-09-09] MEDS ORDERED: FENTANYL CITRATE/PF 100MCG/2 ML INJ ONE (09:26)
[2020-09-09] MEDS ORDERED: SODIUM CHLORIDE 0.9% 1000ML 1,000 ML ONE (09:27)
[2020-09-09] MEDS: NICOTINE 21 MG/EA PATCH TOP SCH (09:27)
[2020-09-09] MEDS ORDERED: IOPAMIDOL 370 MG/ML 200 ML INFUS..BTL INJ ONE (09:27)
[2020-09-09] MEDS ORDERED: VERAPAMIL HCL 2.5 MG/ML 2 ML VIAL ONE (09:53)
--- NOTE | 2020-09-09 10:27 | NUR ---
1027a CCL Recovery phase initiated Rm #9 Bedside report received from Aiden Hudson RN.Identiferx2 Alert oriented and appropriate, PERRLA, respirations even and unlabored to room air. Pulses x4 extremities equal and strong. 6Fr sheath in place Shaun Rt at bedside for 15min manual hold successful stasis achieved.Tegederm dressing applied with 2x2 Pedal pulses present No s/s of hematoma or gross abnormality. Flat time till 4pm Skin warm and dry integrity appears intact. IV lt ac and rt forearm. No gross issues no iv fluids infusing. presents healthy w/o s/s of infiltration or complaint. Abdomen soft and supple. pt offered toileting, denies need to urinate or defecate. No personal affects with patient. Family not available. Remains in room.Pt understanding of POC. Bedside monitoring initiated. Currently w/o complaint of pain or need. Call light within reach, bed low and locked, side rails up x2. pt using personal mask for COVID-19 mitigation. ds/rn
--- NOTE | 2020-09-09 10:30 | NUR ---
1030a successful sheath removal.(15min manual, hold by Shaun vascular technologist) No gross issues pain,pallor,pressure or dysrhythmia. Flat time till 4pm.eliel/rn
--- NOTE | 2020-09-09 11:00 | NUR ---
1100aReport phoned to Chastity Dawn .Encourged downtime to at least 3pm for 4hrs post stasis to rt femoral stick site.No gross issues pain ,pallor,pressure Continues to have lower sats(93% with o2) but expected. Patient requires continue 02 Nc at 15l high flow.hasd [facility] No fix with Rt Femoral approach. Transported back to room per bed with tele and report to tele room .Left pt with RN at bedside call light at BS and pt aware to call for help. Bed in low position and call light at bedside Side rail up and locks on bed. Handoff completed with RN at bedside. ds/rn
--- NOTE | 2020-09-09 15:35 | NUR ---
PATIENT CONTINUES TO GET OUT OF BED, DESPITE INSTRUCTIONS REGARDING BEDREST. PATIENT CONTINUES TO PULL OFF OXYGEN, DESPITE NUMEROUS ATTEMPTS AT REDIRECTION. AT BEDSIDE AND IS AWARE PATIENT WILL NOT FOLLOW INSTRUCTIONS GIVEN.
--- NOTE | 2020-09-09 16:36 | NUR ---
Nutrition Screen Note RD Recommendation for Physician: -Continue cardiac diet Plan of Care: RD following, monitoring for tolerance and adequacy Nutrition reason for involvement: follow up Primary Diagnose(s): cellulitis, CHF PMH: COPD, Hypertension, Diabetes, Possible CHF Ht: 64 in Wt: 170 lb BMI: 29.2 kg/m2 IBW:[address] Assessment: 09/09: Follow up. Chart reviewed. Pt was discussed during interdisciplinary rounds. Pt had a heart cath today and is it recorded that pt is consuming 100% of his meals per chart. Will continue to monitor (09/02/20) Chart reviewed. Labs and meds reviewed. Pt is a 74 year old male admitted with cellulitis and CHF. COVID-19 results are pending and pt is on droplet isolation. Therefore, RD called pt over the phone. Pt reports eating all of his meals. Pt was unsure of any weight changes and stated he usually weighs 170 lbs. No N/V/D/C or chewing/swallowing issues. Pt declined the need for diet education. Will continue to monitor. Current Diet: cardiac Malnutrition Evaluation (09/02/20) The patient does not meet criteria for a specified degree of malnutrition at this time. Will re-evaluate at follow-up as appropriate. Diet Education Needs Assessment: Pt declined the need for diet education (09/02) Nutrition Care Level: low Signed: Regina Hess, TRICIA, LD
[2020-09-09] MEDS: CEFEPIME 1GM/NS 0.9% 50 ML 50 ML IV SCH (16:47)
--- NOTE | 2020-09-09 17:08 | Progress Note ---
DATE: SUBJECTIVE: The patient is still requiring oxygen at 15 L. He went for cardiac cath today. He had no obstructive coronary artery disease. He did have a decreased ejection fraction of 30% to 35%. Speech therapy evaluation showed no evidence of aspiration. PHYSICAL EXAMINATION: VITAL SIGNS: Blood pressure is 130/68 and the saturation is 97% on 15 L. The respiratory rate is 25. Pulse is 110 to 120. HEENT: Shows no facial swelling or erythema. LYMPHATIC: Shows no submandibular, cervical, or supraclavicular adenopathy. CARDIAC: Reveals regular rate and rhythm with normal S1 and S2. LUNGS: Auscultation of lungs reveals crackles at the bases. There is no wheezing. ABDOMEN: Soft and nontender. There is no rebound or guarding. EXTREMITIES: Show 2 to 3+ leg edema. LABORATORY DATA: White blood cell count is 6.4 and the hemoglobin is 11.8. The platelet count is 130. BUN to creatinine ratio is normal. The other electrolytes are within normal limits. RADIOGRAPHIC DATA: Shows bibasilar opacities. IMPRESSION: 1. Unmxt-di-rncnbhb systolic congestive heart failure. 2. Cellulitis of lower extremities, present on admission. 3. Cmnsu-di-qcwqdjz respiratory failure. 4. Chronic obstructive pulmonary disease. 5. Anemia. 6. Hypertension. PLAN: 1. Continue current cardiac regimen. 2. Continue diuretics. 3. Repeat CT scan of chest. 4. Wean oxygen as tolerated. MD FLAVIO Pratt/KERRI /[id number]
--- NOTE | 2020-09-09 18:48 | Operative Report ---
DATE OF PROCEDURE: 09/09/2020 SURGEON: Jean Ovalle MD PROCEDURE INDICATIONS: Acute systolic heart failure and angina pectoris. PROCEDURES PERFORMED: 1. Left heart catheterization. 2. Selective coronary angiography. 3. Manual pressure hemostasis. 4. Moderate sedation initial 50 minutes. PROCEDURE COMPLICATIONS: None. ESTIMATED BLOOD LOSS: Less than 15 mL. PROCEDURE SUMMARY: After consent was obtained, the patient was prepped and draped in a sterile fashion. The right femoral site was locally infiltrated with 2% lidocaine. An access was obtained using ultrasound guidance. Of note, initial access to right radial site was met with very small caliber renal artery anatomy in spite of nitroglycerin administration, so sheath was removed and TR band applied to this site. At the end of the procedure, manual pressure hemostasis was applied to the right femoral site. A JL4 and JR4 6-Welsh catheters were used for left main and right coronary artery and a pigtail catheter was used to cross the aortic valve. These were the following findings: 1. LV pressure was 145/19 with end-diastolic pressure of 29. 2. Aortic pressure was 145/80. 3. LV-gram reveals severe impairment in left ventricular systolic function, global with LVEF 30% to 35%. 4. Left main is large in caliber with luminal irregularities, gives an LAD and circumflex. 5. The LAD has luminal irregularities. It gives septal job site superintendent of medium caliber after a diagonal small caliber. The mid LAD has 50% stenosis. The 2nd diagonal of small caliber arises after which the LAD distal is small in caliber. It ends in the apical anterior segment of LV myocardium. 6. The left circumflex gives high take of medium caliber obtuse marginal and left atrial branch has luminal irregularities. 7. The right coronary artery has 30% mid stenosis. It gives 2 RV marginals and terminal RPDA and RPLV with 2 terminal branches. Luminal irregularities are noted throughout the terminal branches of the dominant right coronary artery. CONCLUSION: 1. Nonischemic cardiomyopathy with chronic systolic heart failure out of proportion to level observed coronary artery disease. 2. LVEF 30% to 35%. 3. Bbaj-kv-uyusaave coronary artery disease. RECOMMEND: Continue medical management for heart failure and uckk-nf-muqzattn CAD. Continue diuretic therapy. MD RILEY Castillo/IGORL /[id number]
--- NOTE | 2020-09-09 19:23 | Progress Note ---
DATE: 09/09/2020 Cardiology Progress Note SUBJECTIVE: Mr. Preciado has no new complaints today. OBJECTIVE: VITAL SIGNS: Temperature 97.7, heart rate 104, blood pressure 139/66, respiratory rate 21, and O2 saturation 91%. GENERAL: In no acute distress. Alert. NECK: JVD distended. CHEST: With scattered rhonchi. CARDIOVASCULAR: Regular rate and rhythm. Normal S1 and S2. ABDOMEN: Soft. EXTREMITIES: No edema. CARDIOVASCULAR MEDICATIONS: Reviewed. Nicotine 21 mg daily, cefepime and vancomycin antibiotics, furosemide 40 mg IV every 12 hours, and metoprolol tartrate 12.5 mg every 8 hours. STUDIES: Reviewed. Creatinine 0.8, potassium 3.8, bicarbonate 39, and glucose 90. White blood cells 6.4, hemoglobin 11.8, and platelets 130. INR 0.9. AST 19, ALT 8, and alkaline phosphatase 58. ASSESSMENT AND PLAN: A 74-year-old man, status post coronary angiography today remarkable for moderate coronary artery disease and predominant nonischemic cardiomyopathy, chronic systolic heart failure, LVEF 30% to 35% on LV-gram, tobacco abuse, chronic obstructive pulmonary disease, hypertension, and suspected dementia. RECOMMEND: 1. Switch metoprolol to extended release formulation and losartan. 2. Diuretics given persistent elevated LVEDP on cath today. Additional fluids have been discontinued. Aspirin and statin therapy advised. Jean Ovalle MD AFTamara/MODL /[id number]
--- NOTE | 2020-09-09 20:33 | Diagnostic Imaging Report ---
EXAM: CT Chest WITHOUT contrast 09/09/2020 5:12 PM INDICATION: Pneumonia. Bilateral infiltrates. COMPARISON: None TECHNIQUE: Chest was scanned utilizing a multidetector helical scanner from the lung apex through the level of the adrenal glands without administration of IV contrast. Absence of intravenous contrast decreases sensitivity for detection of lymphadenopathy and vascular pathology. Coronal and sagittal reformations were obtained. Routine protocol was performed. IV CONTRAST: None RADIATION DOSE: Total DLP: 519.24 mGy*cm Estimated effective dose: (DLP x 0.014 x size factor) mSv COMPLICATIONS: None FINDINGS: LINES/ TUBES: None. LUNGS AND AIRWAYS: Bilateral moderate centrilobular pulmonary emphysema. 7.5 mm spiculated lesion in the right upper lobe laterally on image 56. 1.0 cm noncalcified nodule in the right middle lobe on image 70. Bibasilar subsegmental compressive atelectasis. 2.2 cm patchy spiculated lesion in the lingula on image 78; the latter may be infectious in etiology. There is diffuse thickening of the pulmonary interstitium bilaterally. PLEURA: Bilateral trace pleural effusion. HEART AND MEDIASTINUM: The thyroid gland is normal. Numerous slightly prominent lymph nodes scattered throughout the mediastinum, the largest in the subcarinal region measuring 1.5 cm in short axis. There is also prominence of the pulmonary hilum bilaterally which may represent enlarged pulmonary arteries as seen on image 71 series 2, however, cannot exclude hilar lymphadenopathy. Evaluation limited due to the lack of contrast.. The heart is mildly enlarged. There is no pericardial effusion. There are mild atherosclerotic calcifications in the aorta and coronary arteries. The pulmonary artery is slightly dilated at 3.1 cm in diameter. UPPER ABDOMEN: Limited non-contrast views of the upper abdomen show a 1.3 cm hepatic dome cyst. Atherosclerotic calcifications of the aorta and splenic artery. The adrenal glands are normal. BONES: The visualized bony thorax is within normal limits. SOFT TISSUES: Unremarkable. IMPRESSION: Findings suggestive of interstitial edema superimposed on interstitial changes, and bilateral moderate centrilobular emphysema. Superimposed infectious etiology not excluded. 2.2 cm spiculated density in the lingula may be infectious etiology. There is also a 1.0 cm right middle lobe nodule and a 7.5 mm density in the right upper lobe. Recommend CT chest in 3 months to evaluate stability or lack Mild mediastinal and probably bilateral hilar lymphadenopathy reactive in etiology. Findings concerning for mild pulmonary hypertension. Signed by: Dr. Pascual Armstrong M.D. on 09/09/2020 8:30 PM
[2020-09-09] MEDS: ALPRAZOLAM 0.5 MG TAB PO PRN (21:48)
[2020-09-10] VITALS (9 sets, daily range): BP systolic 123–155; BP diastolic 63–87
[2020-09-10] MEDS: VANCOMYCIN 1GM/NS 250 ML 250 ML IV SCH ×2 (05:59→18:36)
[2020-09-10] MEDS ORDERED: METHYLPREDNISOLONE SOD SUCC 125 MG/2ML VIAL IV ONE (07:35)
--- NOTE | 2020-09-10 07:45 | Progress Note ---
DATE: 09/10/2020 SUBJECTIVE: The patient still complains of some dyspnea. He is using high-flow oxygen at [address] He [address] scan of the chest yesterday that showed some interstitial edema and chronic interstitial changes superimposed on moderate centrilobular emphysema. He also had a 2.2 cm spiculated density in the lingula as well as a small nodule in the right middle lobe and right upper lobe. He does not complain of fevers, although he did have a T-max of 99.6 last night. PHYSICAL EXAMINATION: VITAL SIGNS: Blood pressure is 142/78, saturation is 96%, and the pulse is 106. HEENT: Shows no facial swelling or erythema. LYMPHATIC: Shows no submandibular, cervical, supraclavicular adenopathy. CARDIAC: Reveals regular rate and rhythm with a normal S1 and S2. LUNGS: Auscultation of lungs reveals crackles, rhonchi bilaterally. There is no wheezing. ABDOMEN: Soft, nontender. There is no rebound or guarding. EXTREMITIES: Show 2+ leg edema. LABORATORY DATA: White blood cell count is 6.4 and hemoglobin is 11.8. The platelet count is 130. BUN to creatinine ratio are 21 and 0.81. The other electrolytes are within normal limits. IMPRESSION: 1. Priym-oq-konvfwz respiratory failure. 2. Jmwry-kz-pjsqozh systolic congestive heart failure. 3. Chronic obstructive pulmonary disease with acute exacerbation. 4. Cellulitis of lower extremities with severe sepsis, present on admission. 5. Anemia. 6. Hypertension. PLAN: 1. Continue current antibiotics. The patient will probably require an ID consult. 2. Continue diuretics. 3. Solu-Medrol. 4. Wean oxygen as tolerated. 5. Out of bed as tolerated. 6. DVT prophylaxis. Josafat Acosta MD [facility]/MODL /[id number]
[2020-09-10] MEDS: FUROSEMIDE INJ 10 MG/ML 4 ML VIAL IV SCH ×2 (08:06→20:29)
[2020-09-10] MEDS: ACETAZOLAMIDE SODIUM 500 MG/VIAL IV SCH (08:06)
[2020-09-10] MEDS: LATANOPROST(OPTH) 2.5 ML BTL OP SCH (08:06)
[2020-09-10] MEDS: ASPIRIN 81 MG CHEW TAB PO SCH (08:06)
[2020-09-10] MEDS: NICOTINE 21 MG/EA PATCH TOP SCH (08:07)
[2020-09-10] MEDS: TAMSULOSIN HCL 0.4 MG CAP PO SCH ×2 (08:07→20:29)
--- NOTE | 2020-09-10 08:18 | NUR ---
IM- progress note O/N see below ROS: no f/c/s/N/V/D/OSORIO/cp/confusion/dizziness/vision changes/focal limb weakness v/s revd PE tired appearing anicteric ns1s2 REDUCED BS soft nt nd ERYTHEMA AND WARMTH OF B/L FORELEGS, WITH ASSOCIATED EDEMA 2+ skin dry flat affect a&ox3; knox labs/meds revd A/P: Cellulitis of B/L forelegs- IV vanco AECOPD/Severe COPD - O2 prn Nicotine dependence- use nicotine patch AECHF- check echo; use lasix IV B/L pulmonary edema- diurese Prop: lovenox Dispo: f/u COVID testing - cont care; improving; - cont abx; COVID negative; cont care; 09-04 caught smoking in room yesterday- started on nicotine patch; cont Cefepime/vanco for cellulitis; cont o2 support for AECOPD. 11-8 Hypercapneic Hypoxemic resp failure. Check K - change vanco to BID. cont BIPAP - replace K; SNF eval, Pt now refusing SNF. -11 replace K; Acute Metabolic Encephalopathy- xanax; AECOPD- and Acute resp failure- BIPAP. 11-12 check BMP; contraction alkalosis present; LHC pending today. 11-13 Pulmonary edema; 2.2cm Spiculated Lingula mass and 1.0cm RML nodule and 0.75mm RUL density; will need repeat in 3 months; Bx of mass in lingula- will d/w ; ID eval. Remains on high O2. JARRED GUZMÁN MD, PHD.
[2020-09-10] MEDS: LOSARTAN POTASSIUM 25 MG TAB PO SCH (08:29)
--- NOTE | 2020-09-10 09:29 | NUR ---
rec'd bedside report from althea ramsey for continuity of care
--- NOTE | 2020-09-10 12:26 | NUR ---
PULSE OX REPLACED. SITTING UP IN BED EATING LUNCH WITH 02 ON.
--- NOTE | 2020-09-10 14:45 | NUR ---
pt's is here to see him.
--- NOTE | 2020-09-10 14:53 | NUR ---
r.t. called to replace o2 humidification
--- NOTE | 2020-09-10 15:02 | NUR ---
R.T. IN ROOM TO REPLACE HUMIDIFICATION BOTTLE; STERILE WATER
[2020-09-10] MEDS: CEFEPIME 1GM/NS 0.9% 50 ML 50 ML IV SCH (15:53)
--- NOTE | 2020-09-10 15:56 | NUR ---
iv dc'd to the right forearm; catheter intact.
--- NOTE | 2020-09-10 16:43 | NUR ---
left for the day.
[2020-09-10] MEDS: ENOXAPARIN SOD INJ 40 MG/0.4 ML SYR SC SCH (17:15)
--- NOTE | 2020-09-10 17:20 | NUR ---
called the lab to come and draw vanc. merida; spoke with maria antonia
--- NOTE | 2020-09-10 17:41 | NUR ---
lab in the room at this time to draw the vanc. trough
--- NOTE | 2020-09-10 18:35 | NUR ---
vanc. trough 13.6
[2020-09-10 19:10] LABS: FREE THYROXINE INDEX 2.1084 (1.4-3.8); THYROID STIMULATING HORMONE 0.73 uIU/mL (0.350-4.940)
--- NOTE | 2020-09-10 19:54 | Consultation ---
DATE OF CONSULTATION: Thank you so much for seeing this patient. HISTORY OF PRESENT ILLNESS: This patient was admitted on September 01. The patient comes in with erythema and swelling of both lower extremity. He does have history of COPD, and he does use oxygen in the house, comes in with shortness of breath. The patient with history of shortness of breath, diabetes mellitus, congestive heart failure, hypertension, and COPD, was admitted with above. He does have history of hernia repair. The patient comes in on September 01 as mentioned above. He has been here since then. He is feeling better, however, I was asked to see him today to give an opinion about his status. The patient is telling me he is feeling better. He still has some oxygen. He is on high-flow at 15 L, but he does not remember why did he come here, he is little bit worried of his hospitalization course. The patient had a CAT scan, it showed interstitial edema and chronic interstitial changes superimposed central lobular emphysema. The patient is currently alert, has no complaint except some weakness and shortness of breath. PAST MEDICAL HISTORY: As above. PAST SURGICAL HISTORY: As above. ALLERGIES: NKA. SOCIAL HISTORY: There is no smoking, drug abuse, or alcohol abuse. FAMILY HISTORY: Noncontributory. REVIEW OF SYSTEMS: Mainly weakness and shortness of breath on exertion. LABORATORY DATA: White count 6.4, hemoglobin 11, and hematocrit 46. His vancomycin has been 11.8. COVID-19 was nondetectable on the , on the still pending. PHYSICAL EXAMINATION: GENERAL: He is currently alert, oriented, afebrile. HEENT: Not icteric. NECK: Supple. CHEST: Crackles bilaterally. HEART: S1, S2. ABDOMEN: Soft. Bowel sounds present. EXTREMITIES: No edema. SKIN: No rash. He had no fever since admission. IMAGING DATA: CT of the chest reviewed. The patient has been seen by Pulmonary and Cardiology. IMPRESSION: 1. Shortness of breath. 2. Underlying chronic obstructive pulmonary disease. 3. Underlying history of coronary disease, ejection fraction of 30%. PLAN: Recommend to do CTA to rule out pulmonary embolism. I agree with rechecking PCR. We will also obtain IgG for COVID and BMP even if he has COVID on admission, he seems to be stable. We will discontinue vancomycin and cefepime. We will check for Legionella, mycoplasma, Chlamydia, and HIV. Obtain BMP collagen workup. We will follow. MD DANIA Kelly/KERRI /[id number]
[2020-09-10] MEDS: ALPRAZOLAM 0.5 MG TAB PO PRN (20:29)
[2020-09-10] MEDS: METOPROLOL SUCCINATE 25 MG TAB XL PO SCH (20:29)
--- NOTE | 2020-09-10 20:50 | Progress Note ---
DATE: 09/10/2020 Cardiology Progress Note SUBJECTIVE: No new complaints today. Agrees fit for LifeVest which has been ordered. The patient has been fitted pending authorization by insurance. OBJECTIVE: VITAL SIGNS: Temperature 98.2, heart rate 102, blood pressure 129/87, respiratory rate 28, O2 saturation 97%. GENERAL: In no acute distress. Alert. NECK: Supple. No JVD. Sitting upright today. CHEST: With decreased breath sounds. CARDIOVASCULAR: Regular rate and rhythm. Normal S1 and S2. ABDOMEN: Soft. Bowel sounds are positive. EXTREMITIES: With edema trace lower extremities. CARDIOVASCULAR MEDICATIONS: Reviewed. Lovenox 40 mg subcu daily, aspirin 81 mg daily, furosemide 60 mg IV b.i.d., losartan 12.5 mg daily, metoprolol succinate 25 mg daily. STUDIES: Reviewed. Creatinine 0.8, glucose 90, white blood cells 6.4, hemoglobin 11, platelets 130, AST 19, ALT 8, INR 0.9. ASSESSMENT AND PLAN: 1. A 74-year-old man presents with acute on chronic systolic heart failure, severe. 2. Coronary artery disease, moderate. 3. Anemia. 4. Suspected pneumonia. 5. Suspected dementia. 6. Chronic obstructive pulmonary disease. RECOMMEND: 1. Continue beta-toi and ARB. 2. Aspirin. 3. Upon discharge, advised statin therapy. 4. LifeVest. 5. Outpatient followup in 2 to 4 weeks. 6. Daily weights, low-sodium diet and heart failure management advised. MD RILEY Castillo/KERRI /[id number]
[2020-09-11] VITALS (9 sets, daily range): BP systolic 112–131; BP diastolic 56–76
--- NOTE | 2020-09-11 04:07 | NUR ---
IM- progress note O/N see below ROS: no f/c/s/N/V/D/OSORIO/cp/confusion/dizziness/vision changes/focal limb weakness v/s revd PE tired appearing anicteric ns1s2 REDUCED BS soft nt nd ERYTHEMA AND WARMTH OF B/L FORELEGS, WITH ASSOCIATED EDEMA 2+ skin dry flat affect a&ox3; knox labs/meds revd A/P: Cellulitis of B/L forelegs- IV vanco AECOPD/Severe COPD - O2 prn Nicotine dependence- use nicotine patch AECHF- check echo; use lasix IV B/L pulmonary edema- diurese Prop: lovenox Dispo: f/u COVID testing - cont care; improving; 09-03 cont abx; COVID negative; cont care; 09-04 caught smoking in room yesterday- started on nicotine patch; cont Cefepime/vanco for cellulitis; cont o2 support for AECOPD. 09-05 Hypercapneic Hypoxemic resp failure. Check K 09-06 change vanco to BID. cont BIPAP 09-07 replace K; SNF eval, Pt now refusing SNF. 09-08 replace K; Acute Metabolic Encephalopathy- xanax; AECOPD- and Acute resp failure- BIPAP. -12 check BMP; contraction alkalosis present; LHC pending today. 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 Remains on high O2. 14 vanco therapeutic; cont care; on NRBM. Hematuria with patino- . JARRED GUZMÁN MD, PHD.
[2020-09-11 04:48] LABS: BASOPHILS % 0.4 % (0.0-1.0); EOSINOPHILS # (AUTO) 0.1 (0.0-0.4); EOSINOPHILS % 0.9 % (0.0-6.0); HEMATOCRIT 46.6 % (38.2-49.6); HEMOGLOBIN 11.8 g/dL (14.0-18.0); LYMPHOCYTES % 15.3 % (18.0-39.1); MEAN CORPUSCULAR HEMOGLOBIN 19.5 pg (28-32); MEAN CORPUSCULAR HGB CONC 25.3 g/dL (31-35); MEAN CORPUSCULAR VOLUME 77.2 fL (81-99); MONOCYTES # (AUTO) 0.7 (0.2-0.8); MONOCYTES % 10.7 % (4.4-11.3); NEUTROPHILS # (AUTO) 4.9 (2.1-6.9); NEUTROPHILS % 72.4 % (38.7-80.0); PLATELET COUNT 148 x10e3/uL (140-360); RED BLOOD COUNT 6.04 x10e6/uL (4.3-5.7); RED CELL DISTRIBUTION WIDTH 22.2 % (11.7-14.4)
[2020-09-11 04:49] LABS: CALCIUM IONIZED 1.2 mmol/L (1.09-1.30)
[2020-09-11 05:04] LABS: MAGNESIUM 2.2 MG/DL (1.3-2.1); PHOSPHORUS 3.3 MG/DL (2.3-4.7)
[2020-09-11 05:08] LABS: ALANINE AMINOTRANSFERASE 11 IU/L (0-55); ALBUMIN 3.1 g/dL (3.5-5.0); ALBUMIN/GLOBULIN RATIO 1.1 (0.8-2.0); ALKALINE PHOSPHATASE 61 IU/L (40-150); ANION GAP 10.5 mmol/L (8-16); BLOOD UREA NITROGEN 20 mg/dL (7-26); BUN/CREATININE RATIO 24 (6-25); CALCIUM 8.8 mg/dL (8.4-10.2); CHLORIDE 93 mmol/L (98-107); CREATININE, SERUM 0.82 mg/dL (0.72-1.25); EST GLOMERULAR FILTRATION RATE > 60 ML/MIN (60-); GLUCOSE 133 mg/dL (74-118); POTASSIUM 3.5 mmol/L (3.5-5.1); SODIUM 142 mmol/L (136-145)
[2020-09-11] MEDS: ALPRAZOLAM 0.5 MG TAB PO PRN ×2 (05:15→20:35)
[2020-09-11] MEDS: VANCOMYCIN 1GM/NS 250 ML 250 ML IV SCH (05:28)
[2020-09-11 05:31] LABS: CARBON DIOXIDE 42 mmol/L (22-29)
--- NOTE | 2020-09-11 07:00 | NUR ---
rec;d report from police shift commander in walking rounds. pt resting with no s/s of distress. call thorne at side and bed alarm on.
--- NOTE | 2020-09-11 07:26 | NUR ---
DR. Donta HOANG IN TO SEE THE PT.
--- NOTE | 2020-09-11 07:41 | NUR ---
SPOKE WITH BEST FROM CT RE PT. INFO.
--- NOTE | 2020-09-11 08:36 | Consultation ---
DATE OF CONSULTATION: 09/11/2020 Urology Consultation REASON FOR CONSULTATION: Gross hematuria. HISTORY OF PRESENT ILLNESS: Ozzy Quintero is a 74-year-old man admitted with congestive heart failure. He has been getting diuretics. He has a Brown catheter in place to help with that. The patient has been confused. He has been pulling on his Brown catheter. This seemed to have caused some hematuria and urological consultation was sought. Most of the information is obtained from discussion with the patient's nurses and review of the patient's chart. I do not see any immediate documentation of the chart or any urological procedures or intervention. PAST MEDICAL/SURGICAL HISTORY: 1. COPD with home O2. 2. History of leg swelling. 3. Hypertension. 4. Diabetes mellitus. 5. Status post hernia repair. 6. Smoker. FAMILY HISTORY: Noncontributory to the active urological problems. ALLERGIES: NONE KNOWN. CURRENT MEDICATIONS: Please refer to the MAR. SOCIAL HISTORY: The patient smokes and does not drink. REVIEW OF SYSTEMS: Believed to be consistent with above history of present illness and believed to be otherwise negative for all other systems. PHYSICAL EXAMINATION: GENERAL: Elderly man lying in bed, in no apparent distress. He is currently afebrile. VITAL SIGNS: Stable. ABDOMEN: Soft, nondistended, nontender without costovertebral angle tenderness. Kidneys not palpable without hepatosplenomegaly. GENITOURINARY: Testes descended bilaterally. Testes and epididymides bilaterally palpably normal. The patient has a normal circumcised male phallus with 16-Persian Brown catheter in place draining yellow urine output with some tiny old clots without any evidence of any active bleeding at this time. For the remaining physical examination systems, please refer to the history and physical as well as the other physician's notes. LABORATORY STUDIES: Urine culture is negative. White blood cell count 6750, hemoglobin 11.8, platelets 148,000. The patient's creatinine is normal at 0.82. Urinalysis upon admission showed trace proteinuria, otherwise unremarkable. COVID test has been negative. There is no urologically significant imaging in the computer. ASSESSMENT: 1. Gross hematuria. 2. Urethral trauma from pulling at the Brown catheter. 3. Mild anemia. 4. Hypermagnesemia. 5. Proteinuria. 6. Brown catheter in situ. PLAN: 1. I will order a CT to make sure that Brown catheter balloon is in the correct position and there is no other signs and no other causes of hematuria in this patient. The patient was getting Lovenox for prophylaxis and that may have unmasked a source of hematuria. 2. Ongoing urological followup is recommended. 3. I will defer the hematological and electrolyte abnormalities to the primary team. Thank you very much for involving us in care of your patient. We will be happy to follow along with you. Demarco MD Luz [place]/MODL /[id number] cc: Pino Neville
[2020-09-11] MEDS ORDERED: IOPAMIDOL 370 MG/ML 200 ML INFUS..BTL INJ ONE ×2 (08:38→11:29)
[2020-09-11] MEDS ORDERED: SODIUM CHLORIDE 0.9% 250ML 250 ML ONE ×2 (08:38→11:29)
[2020-09-11] MEDS: FUROSEMIDE INJ 10 MG/ML 4 ML VIAL IV SCH ×2 (08:38→20:34)
[2020-09-11] MEDS: ASPIRIN 81 MG CHEW TAB PO SCH (08:39)
[2020-09-11] MEDS: TAMSULOSIN HCL 0.4 MG CAP PO SCH ×2 (08:39→20:34)
[2020-09-11] MEDS: LATANOPROST(OPTH) 2.5 ML BTL OP SCH (08:39)
[2020-09-11] MEDS: METOPROLOL SUCCINATE 25 MG TAB XL PO SCH (08:40)
[2020-09-11] MEDS: LOSARTAN POTASSIUM 25 MG TAB PO SCH (08:41)
--- NOTE | 2020-09-11 08:41 | NUR ---
PLACED BACK ON THE HI-FLOW 02 AT 15L
--- NOTE | 2020-09-11 08:48 | NUR ---
PT PLACED BACK ON THE NON-BREATHER FOR SAT'S IN THE 70'S
[2020-09-11] MEDS: ACETAZOLAMIDE SODIUM 500 MG/VIAL IV SCH (08:52)
[2020-09-11] MEDS: NICOTINE 21 MG/EA PATCH TOP SCH (09:12)
--- NOTE | 2020-09-11 10:50 | NUR ---
off to ct via w/c with 2 rn's
--- NOTE | 2020-09-11 12:07 | NUR ---
back from ct. all linens changed. lunch tray at side.
--- NOTE | 2020-09-11 12:27 | NUR ---
#29 Addendum: 09/11/20 at 1228 by Lotus Neville RN #[id number] IV TO THE LEFT AC DC'D INTACT
--- NOTE | 2020-09-11 13:55 | Diagnostic Imaging Report ---
EXAM: CT Abdomen and Pelvis WITHOUT and WITH contrast INDICATION: HEMATURIA PROTOCOL. CHECK ELAM POSITION COMPARISON: Chest CT on 09/09/2020. TECHNIQUE: Abdomen and pelvis were scanned utilizing a multidetector helical scanner from the lung base to the pubic symphysis before and after administration of IV contrast. Coronal and sagittal reformations were obtained. Routine protocol was performed. Scan was performed when during portal venous phase. IV CONTRAST: 150 mL of Omnipaque 300 ORAL CONTRAST: None COMPLICATIONS: None RADIATION DOSE: Total DLP: 1076 mGy*cm Estimated effective dose: (DLP x 0.015 x size factor) mSv CTDIvol has been reviewed. It is below the limits set by the Radiation Protocol Committee (RPC). Dose modulation, iterative reconstruction, and/or weight based adjustment of the mA/kV was utilized to reduce the radiation dose to as low as reasonably achievable. FINDINGS: LINES and TUBES: Elam catheter which terminates in the urinary bladder lumen. LOWER THORAX: Findings most compatible with pulmonary edema and mild interstitial lung disease better demonstrated on comparison chest CT. There is atherosclerotic calcification of the partially imaged coronary arteries. HEPATOBILIARY: There is a 1.2 cm left hepatic lobe cyst. No biliary ductal dilation. GALLBLADDER: No radio-opaque stones or sludge. No wall thickening. SPLEEN: No splenomegaly. PANCREAS: No focal masses or ductal dilatation. ADRENALS: There is thickening of the adrenal gland without discrete nodule, consistent with hyperplasia. KIDNEYS/URETERS: Kidneys enhance symmetrically. No hydronephrosis. There are bilateral renal cysts, the largest measuring up to 5.5 cm in the lower pole of the left kidney. Additional multifocal hypodense lesions throughout both kidneys are too small to characterize but likely represents smaller cysts. No stones. There are no filling defects within the segmentally visualized ureters. GI TRACT: No abnormal distention, wall thickening, or evidence of bowel obstruction. There are diverticula within the colon without evidence of diverticulitis. Appendix is normal. PELVIC ORGANS/BLADDER: Elam catheter which terminates within the urinary bladder lumen. There is dependent air pockets within the urinary bladder likely from recent instrumentation. There is circumferential thickening of the urinary bladder. The prostate gland is enlarged measuring 5.1 x 4.7 cm. LYMPH NODES: No lymphadenopathy. VESSELS: There is mild atherosclerotic disease in the aorta and major arterial branches. PERITONEUM / RETROPERITONEUM: No free air or fluid. BONES: There are degenerative changes in the lumbar spine. There is bilateral L5 pars defect without listhesis. There are multifocal striated hypodensities in the thoracolumbar vertebral bodies which likely represents benign hemangiomas. SOFT TISSUES: Unremarkable. IMPRESSION: 1. Circumferential thickening of the urinary bladder wall which may reflect underdistention versus cystitis. Correlate with urinalysis. No suspicious renal mass or filling defect within the segmentally visualized ureters. 2. Elam catheter within the urinary bladder lumen. 3. Prostatomegaly. 4. Diverticulosis without evidence of active inflammation. 5. Findings compatible with pulmonary edema and mild interstitial lung disease better demonstrated on comparison chest CT. Signed by: Nathan Calvillo MD on 09/11/2020 1:52 PM
[2020-09-11] MEDS: CEFEPIME 1GM/NS 0.9% 50 ML 50 ML IV SCH (15:41)
[2020-09-11] MEDS ORDERED: ACETAZOLAMIDE SODIUM 500 MG/VIAL IV SCH (16:00)
--- NOTE | 2020-09-11 16:35 | NUR ---
NEW HUMIDIFICATION BOTTLE CONNECTED FOR THIS PT. NEW NRB AT BEDSIDE
[2020-09-11] MEDS: ENOXAPARIN SOD INJ 40 MG/0.4 ML SYR SC SCH (17:16)
--- NOTE | 2020-09-11 17:17 | Progress Note ---
DATE: SUBJECTIVE: Mr. Quintero is lying in bed comfortably. He said he is feeling better, however, remains in shortness of breath. The patient blood cultures are negative. Urine cultures are negative. His white count is 6.75. OBJECTIVE: VITAL SIGNS: Heart rate is 107, respiration of 20, blood pressure 102/62. HEENT: He is not icteric. NECK: Supple. CHEST: Few crackles bilateral. HEART: S1, S2. ABDOMEN: Soft. Bowel sounds Present. EXTREMITIES: No edema. SKIN: No rash. The patient according to his has been short of breath for a week before he came to us and was using home oxygen. LABORATORY DATA: As mentioned above. White count 6.7, hemoglobin 11. Serology is still pending. Workup is still pending. IMPRESSION AND PLAN: Respiratory failure, progressive over the last week or so. Superimposed bacterial pneumonia, can discontinue antibiotic, oxygen if needed. We will follow. MD DANIA Kelly/MODL /[id number]
--- NOTE | 2020-09-11 18:43 | NUR ---
REPORTED OFF TO MARIZA SIMON
--- NOTE | 2020-09-11 18:58 | Progress Note ---
DATE: 09/11/2020 Cardiology Progress Note SUBJECTIVE: Mr. Preciado has episodes of confusion. Still requiring high-flow nasal cannula. Denies any chest pain or shortness of breath currently. OBJECTIVE: VITAL SIGNS: Temperature 98.4, heart rate 102, blood pressure 131/74, respiratory rate 24, O2 saturation 99%. GENERAL: In no acute distress. Alert. Chronically ill-appearing. NECK: With JVD to lower third of neck. CHEST: With decreased breath sounds. CARDIOVASCULAR: Regular rate and rhythm. Normal S1 and S2. No S3 or S4. Systolic murmur. ABDOMEN: Soft. Bowel sounds positive. EXTREMITIES: No edema. CARDIOVASCULAR MEDICATIONS: Reviewed. Nicotine patch 21 mg daily, metoprolol succinate 25 mg daily, Lovenox 40 mg subcu daily, aspirin 81 mg daily, tamsulosin 0.4 mg daily, furosemide 60 mg IV every 12 hours, losartan 12.5 mg daily. STUDIES: Reviewed. Sodium 142, potassium 3.5, chloride 93, bicarbonate 42, BUN 20, creatinine 0.8, glucose 133. White blood cell 6.7, hemoglobin 11.8 platelets 148. INR 0.9. AST 18, ALT 11. ASSESSMENT AND PLAN: 1. A 74-year-old man presents with acute on chronic systolic heart failure. 2. Chronic obstructive pulmonary disease exacerbation. 3. Hypertension. 4. Suspected dementia. 5. Qjvs-le-jucpcqlh coronary artery disease. RECOMMEND: 1. Continue current cardiovascular medications. 2. Continue furosemide. Monitoring bicarb and BUN to creatinine ratio as well as volume status. Continue aspirin, statin, and beta toi, ARB. Jean Ovalle MD [facility]/MOD[facility] /[id number]
[2020-09-12] VITALS (10 sets, daily range): BP systolic 103–123; BP diastolic 53–91
[2020-09-12] MEDS: ALPRAZOLAM 0.5 MG TAB PO PRN ×2 (02:40→20:30)
[2020-09-12 05:29] LABS: BASOPHILS % 0.6 % (0.0-1.0); EOSINOPHILS # (AUTO) 0.5 (0.0-0.4); EOSINOPHILS % 7.5 % (0.0-6.0); HEMATOCRIT 47.4 % (38.2-49.6); HEMOGLOBIN 11.6 g/dL (14.0-18.0); LYMPHOCYTES # (AUTO) 1.3 (1.0-3.2); LYMPHOCYTES % 21.4 % (18.0-39.1); MEAN CORPUSCULAR HEMOGLOBIN 19.4 pg (28-32); MEAN CORPUSCULAR HGB CONC 24.5 g/dL (31-35); MEAN CORPUSCULAR VOLUME 79.3 fL (81-99); MONOCYTES # (AUTO) 0.5 (0.2-0.8); MONOCYTES % 8.1 % (4.4-11.3); NEUTROPHILS # (AUTO) 3.9 (2.1-6.9); NEUTROPHILS % 62.2 % (38.7-80.0); PLATELET COUNT 167 x10e3/uL (140-360); RED BLOOD COUNT 5.98 x10e6/uL (4.3-5.7); RED CELL DISTRIBUTION WIDTH 22.4 % (11.7-14.4)
[2020-09-12 05:44] LABS: ALANINE AMINOTRANSFERASE 15 IU/L (0-55); ALBUMIN 3.2 g/dL (3.5-5.0); ALBUMIN/GLOBULIN RATIO 1.2 (0.8-2.0); ALKALINE PHOSPHATASE 61 IU/L (40-150); ANION GAP 9.5 mmol/L (8-16); BLOOD UREA NITROGEN 21 mg/dL (7-26); BUN/CREATININE RATIO 25 (6-25); CALCIUM 8.5 mg/dL (8.4-10.2); CHLORIDE 92 mmol/L (98-107); CREATININE, SERUM 0.83 mg/dL (0.72-1.25); EST GLOMERULAR FILTRATION RATE > 60 ML/MIN (60-); GLUCOSE 110 mg/dL (74-118); MAGNESIUM 2.3 MG/DL (1.3-2.1); PHOSPHORUS 3.9 MG/DL (2.3-4.7); POTASSIUM 3.5 mmol/L (3.5-5.1); SODIUM 144 mmol/L (136-145)
[2020-09-12 05:46] LABS: CARBON DIOXIDE 46 mmol/L (22-29)
[2020-09-12 06:14] LABS: CALCIUM IONIZED 1.1 mmol/L (1.09-1.30)
--- NOTE | 2020-09-12 07:15 | NUR ---
RESTING IN WITH WITH NO S/SX OF DISTRESS NOTED. CALL CORTEZ AT SIDE
[2020-09-12] MEDS: TAMSULOSIN HCL 0.4 MG CAP PO SCH ×2 (08:42→20:30)
[2020-09-12] MEDS: LOSARTAN POTASSIUM 25 MG TAB PO SCH (08:42)
[2020-09-12] MEDS: ASPIRIN 81 MG CHEW TAB PO SCH (08:42)
[2020-09-12] MEDS: LATANOPROST(OPTH) 2.5 ML BTL OP SCH (08:42)
[2020-09-12] MEDS: ACETAZOLAMIDE 250 MG TAB PO SCH (08:42)
[2020-09-12] MEDS: NICOTINE 21 MG/EA PATCH TOP SCH (08:43)
[2020-09-12] MEDS: METOPROLOL SUCCINATE 25 MG TAB XL PO SCH (08:43)
[2020-09-12] MEDS: FUROSEMIDE INJ 10 MG/ML 4 ML VIAL IV SCH (08:53)
--- NOTE | 2020-09-12 09:03 | NUR ---
IM- progress note O/N see below ROS: no f/c/s/N/V/D/OSORIO/cp/confusion/dizziness/vision changes/focal limb weakness v/s revd PE tired appearing anicteric ns1s2 REDUCED BS soft nt nd ERYTHEMA AND WARMTH OF B/L FORELEGS, WITH ASSOCIATED EDEMA 2+ skin dry flat affect a&ox3; knox labs/meds revd A/P: Cellulitis of B/L forelegs- IV vanco AECOPD/Severe COPD - O2 prn Nicotine dependence- use nicotine patch AECHF- check echo; use lasix IV B/L pulmonary edema- diurese Prop: lovenox Dispo: f/u COVID testing - cont care; improving; 09-03 cont abx; COVID negative; cont care; 09-04 caught smoking in room yesterday- started on nicotine patch; cont Cefepime/vanco for cellulitis; cont o2 support for AECOPD. 09-05 Hypercapneic Hypoxemic resp failure. Check K 09-06 change vanco to BID. cont BIPAP 09-07 replace K; SNF eval, Pt now refusing SNF. 09-08 replace K; Acute Metabolic Encephalopathy- xanax; AECOPD- and Acute resp failure- BIPAP. 12 check BMP; contraction alkalosis present; LHC pending today. 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 Remains on high O2. 14 vanco therapeutic; cont care; on NRBM. Hematuria with patino- . 15 cont care; continue O2 support; very ill patient; will d/w family. JARRED GUZMÁN MD, PHD.
[2020-09-12] MEDS ORDERED: METHYLPREDNISOLONE SOD SUCC 125 MG/2ML VIAL IV NR (09:30)
[2020-09-12 09:34] LABS: HYPOCHROMASIA MODERATE; TARGET CELLS FEW
[2020-09-12 09:35] LABS: PLATELET ESTIMATE ADEQUATE; PLATELET MORPHOLOGY COMMENT FEW LARGE; RBC MORPHOLOGY COMMENT ABNORMAL; SCHISTOCYTES RARE
--- NOTE | 2020-09-12 09:51 | Progress Note ---
DATE: SUBJECTIVE: The patient is afebrile. He is still requiring a non-rebreather. PHYSICAL EXAMINATION: VITAL SIGNS: The patient is afebrile. The blood pressure is 119/67, saturation is 99% and the pulse is 117. HEENT: Shows no facial swelling or erythema. LYMPHATIC: Shows no submandibular, cervical or supraclavicular adenopathy. CARDIAC: Reveals regular rate and rhythm with normal S1 and S2. LUNGS: Auscultation of lungs shows decreased breath sounds at the bases. There is no wheezing. ABDOMEN: Soft and nontender. There is no rebound or guarding. EXTREMITIES: Shows no leg edema or calf tenderness. There is no cyanosis or clubbing. SKIN: Shows no rashes. NEUROLOGICAL: Shows no focal abnormalities. LABORATORY DATA: White blood cell count is 6.26 and hemoglobin is 11.6. The platelet count is 167. The BUN to creatinine ratio is 21 to 0.83 and the potassium is 3.5. The carbon dioxide is 46 and the albumin is 3.2. IMPRESSION: 1. Acute on chronic respiratory failure. 2. Acute on chronic systolic congestive heart failure. 3. Chronic obstructive pulmonary disease. 4. Cellulitis of the lower extremities with severe sepsis, present on admission. 5. Anemia. 6. Hypertension. PLAN: 1. Continue current cardiac regimen with diuresis. 2. Solu-Medrol again today. 3. Continue current antibiotics. 4. Infectious Disease is evaluating the patient for atypical infections. 5. Continue to wean oxygen as tolerated. 6. Out of bed as tolerated. 7. DVT prophylaxis. Josafat Acosta MD [facility]/MODL /[id number]
--- NOTE | 2020-09-12 10:01 | NUR ---
R.T. IN ROOM TO PLACE PT. ON BI-PAP; CO2 102.7
--- NOTE | 2020-09-12 10:47 | Diagnostic Imaging Report ---
EXAMINATION: CHEST SINGLE (PORTABLE) INDICATION: resp failure COMPARISON: Chest x-ray on 09/08/2020. FINDINGS: TUBES and LINES: None. LUNGS: Normal lung volumes. There is interval worsening of interstitial prominence and patchy opacification the bilateral lung bases. PLEURA: No pleural effusion or pneumothorax. HEART AND MEDIASTINUM: The cardiomediastinal silhouette is unremarkable. There are atherosclerotic calcifications within the aorta. BONES AND SOFT TISSUES: No acute osseous lesion. Soft tissues are unremarkable. UPPER ABDOMEN: No free air under the diaphragm. IMPRESSION: Interval worsening of interstitial prominence and patchy opacification of bilateral lung bases. Constellation of findings most likely represent worsening pulmonary edema with atelectasis and/or multifocal pneumonia. Signed by: Nathan Calvillo MD on 09/12/2020 10:44 AM
--- NOTE | 2020-09-12 11:41 | NUR ---
pt continues to remove o2 and/or bipap mask. is not alert enough to comprehend teaching/education of need to remain on mask to keep o2 %>90. abg shows co2 at 102. pt placed temp on restraints to assist in keeping mask on. pt sats drop to <80% immediately after mask removal.
--- NOTE | 2020-09-12 14:00 | NUR ---
here to visit. updated on poc.
[2020-09-12] MEDS: ENOXAPARIN SOD INJ 40 MG/0.4 ML SYR SC SCH (17:19)
[2020-09-12 18:16] LABS: ABG HCO3 50 mmol/L (22-26); ABG PCO2 103 mmHg (35-45); ABG PH 7.29 (7.35-7.45); ABG PO2 94 mmHg (80-105); ABG TCO2 > 50
--- NOTE | 2020-09-12 21:48 | Progress Note ---
DATE: 09/12/2020 Cardiology Progress Note SUBJECTIVE: Remains confused today on vent support. OBJECTIVE: VITAL SIGNS: Temperature 98.7, heart rate 108, blood pressure 107/66, respiratory rate 20, O2 saturation 99% with BiPAP on. GENERAL: Chronically ill-appearing, confused on, BiPAP. Attempts to take his BiPAP off, however, is able to maintain oxygenation and acceptable respiratory pattern with BiPAP in place and nursing staff reorienting the patient frequently. HEENT: BiPAP in place. NECK: Supple. CHEST : With decreased breath sounds bilaterally. CARDIOVASCULAR: Regular rate and rhythm. Normal S1 and S2. No S3 or S4. ABDOMEN: Soft. Bowel sounds positive. EXTREMITIES: No edema, normothermic. CARDIOVASCULAR MEDICATIONS: Reviewed. Metoprolol succinate 25 mg daily, aspirin 81 mg daily, Lovenox 40 mg subcu daily, furosemide 60 mg IV every 12 hours being put on hold for today given worsening metabolic status, acetazolamide 250 mg daily, losartan 12.5 mg daily. STUDIES: Reviewed. Sodium 144, potassium 3.5, chloride 92, bicarbonate 46, BUN 21, creatinine 0.8, glucose 110. White blood cell 6.2, hemoglobin 11.6, platelets 167, INR 0.97, AST 20, ALT 15, alkaline phosphatase 61. ASSESSMENT AND PLAN: A 74-year-old man presents with acute on chronic systolic heart failure, oqvw-yq-yujsjowm coronary artery disease, chronic obstructive pulmonary disease exacerbation, dementia with suspected component of delirium, tobacco abuse, hypertension. RECOMMEND: 1. Close monitoring for respiratory status. Low threshold to transfer to ICU for ventilatory support at the direction of Pulmonary expertise. 2. Reassess acid-base status and volume status again in a.m. For now, continue rest of cardiovascular medications, furosemide and acetazolamide today, bicarb 46. Jean Ovalle MD [facility]/MODL /[id number]
[2020-09-13] VITALS (8 sets, daily range): BP systolic 112–124; BP diastolic 35–89
[2020-09-13] MEDS: ALPRAZOLAM 0.5 MG TAB PO PRN ×3 (04:46→22:31)
[2020-09-13 05:26] LABS: ANION GAP 11.9 mmol/L (8-16); BLOOD UREA NITROGEN 27 mg/dL (7-26); BUN/CREATININE RATIO 33 (6-25); CALCIUM 9.4 mg/dL (8.4-10.2); CHLORIDE 92 mmol/L (98-107); CREATININE, SERUM 0.83 mg/dL (0.72-1.25); EST GLOMERULAR FILTRATION RATE > 60 ML/MIN (60-); GLUCOSE 89 mg/dL (74-118); POTASSIUM 3.9 mmol/L (3.5-5.1); SODIUM 143 mmol/L (136-145)
[2020-09-13 05:32] LABS: CARBON DIOXIDE 43 mmol/L (22-29)
[2020-09-13 05:54] LABS: BASOPHILS # (AUTO) 0.1 (0.0-0.1); BASOPHILS % 0.6 % (0.0-1.0); EOSINOPHILS # (AUTO) 0.3 (0.0-0.4); EOSINOPHILS % 3.5 % (0.0-6.0); HEMATOCRIT 47.6 % (38.2-49.6); LYMPHOCYTES # (AUTO) 1.6 (1.0-3.2); LYMPHOCYTES % 18.8 % (18.0-39.1); MEAN CORPUSCULAR HEMOGLOBIN 19.8 pg (28-32); MEAN CORPUSCULAR HGB CONC 25.2 g/dL (31-35); MEAN CORPUSCULAR VOLUME 78.4 fL (81-99); MONOCYTES # (AUTO) 0.8 (0.2-0.8); MONOCYTES % 9.3 % (4.4-11.3); NEUTROPHILS # (AUTO) 5.6 (2.1-6.9); NEUTROPHILS % 67.3 % (38.7-80.0); PLATELET COUNT 181 x10e3/uL (140-360); RED BLOOD COUNT 6.07 x10e6/uL (4.3-5.7); RED CELL DISTRIBUTION WIDTH 22.4 % (11.7-14.4)
[2020-09-13] MEDS: ASPIRIN 81 MG CHEW TAB PO SCH (07:55)
[2020-09-13] MEDS: LATANOPROST(OPTH) 2.5 ML BTL OP SCH (07:55)
[2020-09-13] MEDS: TAMSULOSIN HCL 0.4 MG CAP PO SCH ×2 (07:55→22:04)
[2020-09-13] MEDS: ACETAZOLAMIDE 250 MG TAB PO SCH (07:55)
[2020-09-13] MEDS: NICOTINE 21 MG/EA PATCH TOP SCH (07:56)
[2020-09-13] MEDS: LOSARTAN POTASSIUM 25 MG TAB PO SCH (07:58)
[2020-09-13] MEDS: METOPROLOL SUCCINATE 25 MG TAB XL PO SCH (07:58)
--- NOTE | 2020-09-13 10:53 | NUR ---
INFECTIOUS DISEASE PROGRESS NOTE DR. PEE TY HISTORY OF PRESENT ILLNESS: This patient was admitted on September 01. The patient comes in with erythema and swelling of both lower extremity. He does have history of COPD, and he does use oxygen in the house, comes in with shortness of breath. The patient with history of shortness of breath, diabetes mellitus, congestive heart failure, hypertension, and COPD, was admitted with above. He does have history of hernia repair. The patient comes in on September 01 as mentioned above. He has been here since then. He is feeling better, however, I was asked to see him today to give an opinion about his status. The patient is telling me he is feeling better. He still has some oxygen. He is on high-flow at 15 L, but he does not remember why did he come here, he is little bit worried of his hospitalization course. The patient had a CAT scan, it showed interstitial edema and chronic interstitial changes superimposed central lobular emphysema. The patient is currently alert, has no complaint except some weakness and shortness of breath. PAST MEDICAL HISTORY: As above. ALLERGIES: NKA. REVIEW OF SYSTEMS: Mainly weakness and shortness of breath on exertion. ALL 14 POINT ROS REVIEWED AND PERTINENT POSTIVES DOCUMENTED LABORATORY DATA: reviewed PHYSICAL EXAMINATION: GENERAL: He is currently alert, oriented, afebrile. HEENT: Not icteric. normocephalic NECK: Supple. no JVD CHEST: Crackles bilaterally. HEART: S1, S2. no rub ABDOMEN: Soft. Bowel sounds present. EXTREMITIES: No edema. no joint swelling SKIN: No rash. He had no fever since admission. IMAGING DATA: CT of the chest reviewed. The patient has been seen by Pulmonary and Cardiology. IMPRESSION: 1. Shortness of breath. 2. Underlying chronic obstructive pulmonary disease. 3. Underlying history of coronary disease, ejection fraction of 30%. PLAN: monitor off antibiotics afebrile on HF n/c at 8LPM call with change in condition An Coffey MSN, [employer], AGACNP- d/w Pee Ty M.D.
--- NOTE | 2020-09-13 12:22 | NUR ---
IM- progress note O/N see below ROS: no f/c/s/N/V/D/OSORIO/cp/confusion/dizziness/vision changes/focal limb weakness v/s revd PE tired appearing anicteric ns1s2 REDUCED BS soft nt nd ERYTHEMA AND WARMTH OF B/L FORELEGS, WITH ASSOCIATED EDEMA 2+ skin dry flat affect a&ox3; knox labs/meds revd A/P: Cellulitis of B/L forelegs- IV vanco AECOPD/Severe COPD - O2 prn Nicotine dependence- use nicotine patch AECHF- check echo; use lasix IV B/L pulmonary edema- diurese CAD Nonischemic CM SYstolic CHF LVEF 30-35%- likely chronic Prop: lovenox Dispo: f/u COVID testing 09-02 cont care; improving; 09-03 cont abx; COVID negative; cont care; 09-04 caught smoking in room yesterday- started on nicotine patch; cont Cefepime/vanco for cellulitis; cont o2 support for AECOPD. 09-05 Hypercapneic Hypoxemic resp failure. Check K 09-06 change vanco to BID. cont BIPAP 09-07 replace K; SNF eval, Pt now refusing SNF. 09-08 replace K; Acute Metabolic Encephalopathy- xanax; AECOPD- and Acute resp failure- BIPAP. 09-09 check BMP; contraction alkalosis present; LHC pending today. 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 Remains on high O2. 09-11 vanco therapeutic; cont care; on NRBM. Hematuria with patino- . 09-12 cont care; continue O2 support; very ill patient; will d/w family. 09-13 cont care; left message for family; will retry later; Non-ischemic CM, LVEF 30-35%, ,may need lifevest; CAD- cont meds; JARRED GUZMÁN MD, PHD.
--- NOTE | 2020-09-13 13:47 | Progress Note ---
DATE: 09/13/2020 Cardiology Progress Note SUBJECTIVE: No complaints today. High-flow nasal cannula. Denies chest pain or shortness of breath. OBJECTIVE: VITAL SIGNS: Temperature , blood pressure 124/89, respiratory rate 20, and O2 saturation 99%. GENERAL: No acute distress. Alert. Chronically ill-appearing. NECK: Supple. No JVD. CHEST: With decreased breath sounds. CARDIOVASCULAR: Regular rate and rhythm. Normal S1 and S2. ABDOMEN: Soft. Bowel sounds positive. EXTREMITIES: No edema. CARDIOVASCULAR MEDICATIONS: Nicotine 21 mg daily, metoprolol succinate 25 mg daily, aspirin 81 mg daily, Lovenox 40 mg subcutaneous daily, furosemide 60 mg every 12 hours, and losartan 12.5 mg daily. LABORATORY DATA: Sodium 143, potassium 3.9, chloride 92, bicarbonate 43, BUN 27, creatinine 0.8, and glucose 89. White blood cells 8.2, hemoglobin 12, and platelets 181. PT 13.4, PTT 29.9, and INR 0.97. AST 20, ALT 15, and alkaline phosphatase 61. ASSESSMENT AND PLAN: A 74-year-old man presents with ghrrp-nn-mkqnnkz systolic heart failure, tbkw-ms-mqplfgzd coronary artery disease, chronic obstructive pulmonary disease exacerbation, hypertension, delirium, and underlying suspected dementia. RECOMMEND: 1. Continue metoprolol and losartan for heart failure. 2. Continue aspirin and add statin for CAD. 3. Monitor acid-base status, contraction alkalosis, and worsening respiratory status led to holding diuretics yesterday. Today off BiPAP, however, still requiring high O2 supplementation. Calm, less agitated today. Jean Ovalle MD [facility]/MODL /[id number]
[2020-09-13] MEDS ORDERED: METHYLPREDNISOLONE SOD SUCC 125 MG/2ML VIAL IV NR (16:00)
--- NOTE | 2020-09-13 16:38 | Progress Note ---
DATE: SUBJECTIVE: The patient is more comfortable. His oxygen has been decreased to nasal cannula 6 L. He is not having fevers. PHYSICAL EXAMINATION: VITAL SIGNS: Blood pressure is 124/86, saturation is 92% on 6 L, and the pulse is 88. HEENT: Shows no facial swelling or erythema. LYMPHATIC: Shows no submandibular, cervical, or supraclavicular adenopathy. CARDIAC: Reveals regular rate and rhythm with normal S1 and S2. There are no murmurs or rubs. LUNGS: Auscultation of lungs reveals rhonchorous breath sounds bilaterally. There is no wheezing. ABDOMEN: Soft and nontender. There is no rebound or guarding. EXTREMITIES: Show no leg edema or calf tenderness. There is no cyanosis or clubbing. SKIN: Shows no rashes. NEUROLOGICAL: Shows no focal abnormalities. LABORATORY DATA: White blood cell count is 8.28, hemoglobin is 12, and platelet count is 181. The BUN to creatinine ratio is 27 to 0.83 and the carbon monoxide is 43. The other electrolytes are within normal limits. IMPRESSION: 1. Ahbdt-aa-mjlllvn systolic congestive heart failure. 2. Sddco-dq-rfmrxmc respiratory failure. 3. Chronic obstructive pulmonary disease. 4. Cellulitis of the lower extremities with severe sepsis, present on admission. 5. Anemia. 6. Hypertension. PLAN: 1. Continue current cardiac regimen. 2. Repeat Solu-Medrol today. 3. Continue current antibiotics. 4. Continue current oxygen and wean as tolerated. Josafat Acosta MD [facility]/MODL /[id number]
[2020-09-13] MEDS: ENOXAPARIN SOD INJ 40 MG/0.4 ML SYR SC SCH (16:54)
--- NOTE | 2020-09-13 18:15 | NUR ---
Patient alert and cooperative throughout most of shift. Patient did try pull off oxygen and ekg leads a few times but was redirected. Life vest rep arrived to room at approx 1300 and teaching done at bedside. Equipment to bedside. Instructions on how to place on patient on box when patient discharged to home. Informed rep that patient is forgetful. Patient was engaged in teaching during reps visit. Patient became more agitated and restless around 1700. Patient with great appetite and 100% meals eaten.
[2020-09-14 00:16] VITALS: BP 123/60
[2020-09-14 04:00] VITALS: BP 137/84
--- NOTE | 2020-09-14 06:22 | NUR ---
D/C summary PRincipal Dx: Cellulitis of B/L forelegs- IV vanco AECOPD/Severe COPD - O2 prn Nicotine dependence- use nicotine patch AECHF- check echo; use lasix IV B/L pulmonary edema- diurese Acute Metabolic encephalopathy- due to infection/COPD Acute respiratory failure- BIPAP Spiculated Lingula mass and RML nodule and RUL density Pulmonary edema SEocndary Dx: CAD Nonischemic CM SYstolic CHF LVEF 30-35%- likely chronic Prop: lovenox Dispo: f/u COVID testing 09-02 cont care; improving; 09-03 cont abx; COVID negative; cont care; 09-04 caught smoking in room yesterday- started on nicotine patch; cont Cefepime/vanco for cellulitis; cont o2 support for AECOPD. 09-05 Hypercapneic Hypoxemic resp failure. Check K 09-06 change vanco to BID. cont BIPAP 09-07 replace K; SNF eval, Pt now refusing SNF. 09-08 replace K; Acute Metabolic Encephalopathy- xanax; AECOPD- and Acute resp failure- BIPAP. 09-09 check BMP; contraction alkalosis present; LHC pending today. 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 Remains on high O2. 09-11 vanco therapeutic; cont care; on NRBM. Hematuria with patino- . 09-12 cont care; continue O2 support; very ill patient; will d/w family. 09-13 cont care; left message for family; will retry later; Non-ischemic CM, LVEF 30-35%, ,may need lifevest; CAD- cont meds; 09-14 spoke with extensively; cont care; Hospice care a consideration. d/c to home with hospice tenable f/u pcp 2 days d/c>35misn JARRED GUZMÁN MD, PHD.
[2020-09-14 07:30] VITALS: BP 114/59
--- NOTE | 2020-09-14 07:30 | NUR ---
Patient yelling out and pulling off oxygen reoriented to keeping his oxygen on because oxygen drops to 81%. Placed a type to secure oxygen to face will monitor closely bed alarms on no restraints on arrival.
[2020-09-14] MEDS: ALPRAZOLAM 0.5 MG TAB PO PRN (07:54)
[2020-09-14 08:00] VITALS: BP 134/76
[2020-09-14] MEDS: ACETAZOLAMIDE 250 MG TAB PO SCH (08:15)
[2020-09-14] MEDS: LOSARTAN POTASSIUM 25 MG TAB PO SCH (08:15)
[2020-09-14] MEDS: LATANOPROST(OPTH) 2.5 ML BTL OP SCH (08:15)
[2020-09-14] MEDS: ASPIRIN 81 MG CHEW TAB PO SCH (08:15)
[2020-09-14] MEDS: TAMSULOSIN HCL 0.4 MG CAP PO SCH (08:15)
[2020-09-14] MEDS: METOPROLOL SUCCINATE 25 MG TAB XL PO SCH (08:16)
[2020-09-14] MEDS: NICOTINE 21 MG/EA PATCH TOP SCH (08:16)
--- NOTE | 2020-09-14 09:20 | NUR ---
CALLED AND SPOKE WITH MILAD, SHE WANTS [facility], FAXED CLINICALS TO COMPANY, WILL UPDATE WHEN READY FOR DISCHARGE.
--- NOTE | 2020-09-14 09:40 | NUR ---
Dr Escobar here at bedside see new orders and notes.
--- NOTE | 2020-09-14 10:00 | NUR ---
Eyes closed aroused to voice condition resp 18
--- NOTE | 2020-09-14 11:40 | NUR ---
Albina in room update given and emotional support.
--- NOTE | 2020-09-14 11:52 | NUR ---
Phoned [employer] spoke with Kanchan to return Life Vest in room because patient is going home on hospice per Ale rn field case manager recommendation after speaking with [facility] staff in room aware
[2020-09-14 12:00] VITALS: BP 123/69
[2020-09-14] MEDS ORDERED: ONDANSETRON HCL 4 MG ORAL DISINTEGRATING TAB PO PRN (12:45)
--- NOTE | 2020-09-14 12:52 | Progress Note ---
DATE: SUBJECTIVE: The patient is comfortable and is now on nasal cannula. PHYSICAL EXAMINATION: VITAL SIGNS: Stable. Blood pressure is 134/76, on 6 L. The pulse is 102. HEENT: Shows no facial swelling or erythema. LYMPHATIC: Shows no submandibular, cervical, or supraclavicular adenopathy. CARDIAC: Reveals a regular rate and rhythm with normal S1 and S2. LUNGS: Auscultation of lungs reveals decreased breath sounds at the bases. There is no wheezing. ABDOMEN: Soft and nontender. There is no rebound or guarding. EXTREMITIES: Show no leg edema or calf tenderness. There is no cyanosis or clubbing. SKIN: Shows no rashes. NEUROLOGICAL: Shows no focal abnormalities. IMPRESSION: 1. Fqpzg-vk-tcrbmrx systolic congestive heart failure. 2. Ragbz-it-kpqxqns respiratory failure. 3. Chronic obstructive pulmonary disease. 4. Cellulitis of lower extremities, present on admission. 5. Anemia. 6. Hypertension. PLAN: 1. Continue current cardiac regimen. 2. Repeat Solu-Medrol. 3. Continue current antibiotics. 4. Continue oxygen as tolerated. Josafat Acosta MD [facility]/MODL /[id number]
--- NOTE | 2020-09-14 13:48 | NUR ---
Courtney with picked up life vest
== END 2020-09-14 15:00 | disposition hospice, home (50) | DRG 871 ==
LOC: ER 12:00 → ERHOLD 14:47 → IMCU 17:15 → MED/SURG2 09-02 17:47 → IMCU 09-04 15:49
PROVIDERS: ADMIT Internal Medicine; ATTEND Internal Medicine
PROC: 5A09357 Assistance with Respiratory Ventilation, Less than 24 Consecutive Hours, Continuous Positive Airway Pressure (ICD-10-PCS; principal; 2020-09-04)
PROC: 4A023N7 Measurement of Cardiac Sampling and Pressure, Left Heart, Percutaneous Approach (ICD-10-PCS; 2020-09-09)
PROC: B2111ZZ Fluoroscopy of Multiple Coronary Arteries using Low Osmolar Contrast (ICD-10-PCS; 2020-09-09)
PROC: B2151ZZ Fluoroscopy of Left Heart using Low Osmolar Contrast (ICD-10-PCS; 2020-09-09)
DX: A41.9 Sepsis, unspecified organism (principal); G93.41 Metabolic encephalopathy; J96.22 Acute and chronic respiratory failure with hypercapnia; J96.21 Acute and chronic respiratory failure with hypoxia; I50.23 Acute on chronic systolic (congestive) heart failure; J15.9 Unspecified bacterial pneumonia; L03.115 Cellulitis of right lower limb; L03.116 Cellulitis of left lower limb; J44.1 Chronic obstructive pulmonary disease with (acute) exacerbation; E87.3 Alkalosis; S37.39XA Other injury of urethra, initial encounter; F05 Delirium due to known physiological condition; D50.0 Iron deficiency anemia secondary to blood loss (chronic); Z99.81 Dependence on supplemental oxygen; I11.0 Hypertensive heart disease with heart failure; E11.9 Type 2 diabetes mellitus without complications; E78.5 Hyperlipidemia, unspecified; M19.90 Unspecified osteoarthritis, unspecified site; F17.210 Nicotine dependence, cigarettes, uncomplicated; F03.90 Unspecified dementia, unspecified severity, without behavioral disturbance, psychotic disturbance, mood disturbance, and anxiety; R91.8 Other nonspecific abnormal finding of lung field; E83.41 Hypermagnesemia; R31.0 Gross hematuria; I25.10 Atherosclerotic heart disease of native coronary artery without angina pectoris; Y93.89 Activity, other specified; Y92.230 Patient room in hospital as the place of occurrence of the external cause; X58.XXXA Exposure to other specified factors, initial encounter; N28.1 Cyst of kidney, acquired; N40.0 Benign prostatic hyperplasia without lower urinary tract symptoms; Z20.828 Contact with and (suspected) exposure to other viral communicable diseases; Z79.84 Long term (current) use of oral hypoglycemic drugs
CPT/HCPCS: 36415; 36600; 71045; 71046; 71250; 74178; 80048; 80053; 80061; 80202; 81001; 82550; 82553; 82805; 82948; 83735; 83880; 84100; 84132; 84436; 84443; 84479; 84484; 85025; 85610; 85651; 85730; 86039; 86140; 86200; 86431; 86631; 86738; 87040; 87086; 87449; 93005; 93306; 93458; 93970; 94660; 97139; 99152; 99284; C1769; C1887; J0692; J1650; J1940; J2001; J2250; J2405; J2543; J2930; J3010; J3370; J7030; J7050; Q9967; U0002